=== PATIENT | female | born 1990 | race Caucasian/White ===

== ENCOUNTER 2016-07-20 15:48 | Emergency (ER) | payer SELFPAY ==
[~2016-07-20] VITALS: Ht 195.6 cm; Wt 92.1 kg
[~2016-07-20 15:48] MED LIST: DIPH25CA58 PO; HYDR-971 PO; PENI500T PO; PRED50TA PO; RANI150T6 PO; TRAM-29 PO; TRIA15CR3 TP
--- NOTE | 2016-07-20 16:14 | PHYS DOC ---
Past Medical History Past Medical History: Constipation, GERD Additional Past Medical Histor: Pinched nerve lower back. Past Surgical History: Appendectomy Alcohol Use: None Drug Use: None Adult General Chief Complaint Chief Complaint: ABDOMINAL PAIN HPI HPI Patient is a 26 year old [female] who presents with [recent 1 week hx constipation, small BM yesterday after taking miralax/doculax, c/o mild gradual non radiating periumbilical pain; no nausea/vomiting; no dysuria/frequency, no fever; no chest pain or dyspnea. appetite good. no problems like this before.] Review of Systems Review of Systems Constitutional: Denies fever or chills [] Eyes: Denies change in visual acuity, redness, or eye pain [] HENT: Denies nasal congestion or sore throat [] Respiratory: Denies cough or shortness of breath [] Cardiovascular: No additional information not addressed in HPI [] GI: Denies abdominal pain, nausea, vomiting, bloody stools or diarrhea [] : Denies dysuria or hematuria [] Musculoskeletal: Denies back pain or joint pain [] Integument: Denies rash or skin lesions [] Neurologic: Denies headache, focal weakness or sensory changes [] Endocrine: Denies polyuria or polydipsia all neg except as noted in HPI[] Allergies Allergies Allergies Coded Allergies Type Severity Reaction Last Updated Verified No Known Drug Allergies 02/04/13 No Physical Exam Physical Exam Constitutional: Well developed, well nourished, no acute distress, non-toxic appearance. [] HENT: Normocephalic, atraumatic, bilateral external ears normal, oropharynx moist, no oral exudates, nose normal. [] Eyes: PERRLA, EOMI, conjunctiva normal, no discharge. [] Neck: Normal range of motion, no tenderness, supple, no stridor. [] Cardiovascular:Heart rate regular rhythm, no murmur [] Lungs & Thorax: Bilateral breath sounds clear to auscultation [] Abdomen: Bowel sounds normal, soft, no tenderness, no masses, no pulsatile masses. [] Skin: Warm, dry, no erythema, no rash. [] Back: No tenderness, no CVA tenderness. [] Extremities: No tenderness, no cyanosis, no clubbing, ROM intact, no edema. [] Neurologic: Alert and oriented X 3, normal motor function, normal sensory function, no focal deficits noted. [] Psychologic: Affect normal, judgement normal, mood normal. [] Current Patient Data Vital Signs Vital Signs Date Time Temp Pulse Resp B/P (MAP) Pulse Ox O2 Delivery O2 Flow Rate FiO2 07/20/16 16:01 98.8 103 16 115/74 (88) 99 Room Air 98.8 Lab Values Laboratory Tests Test 07/20/16 15:13 07/20/16 16:00 07/20/16 16:25 POC Urine HCG, Qualitative Hcg negative (Negative) Urine Collection Type Unknown Urine Color Yellow Urine Clarity Cloudy Urine pH 6.0 Urine Specific [place] 1.015 Urine Protein Negative mg/dL (NEG-TRACE) Urine Glucose (UA) Negative mg/dL (NEG) Urine Ketones (Stick) Negative mg/dL (NEG) Urine Blood Large (NEG) Urine Nitrite Negative (NEG) Urine Bilirubin Negative (NEG) Urine Urobilinogen Dipstick 0.2 mg/dL (0.2 mg/dL) Urine Leukocyte Esterase Negative (NEG) Urine RBC >40 /HPF (0-2) Urine WBC 1-4 /HPF (0-4) Urine Squamous Epithelial Cells Mod /LPF Urine Bacteria Few /HPF (0-FEW) Urine Mucus Marked /LPF White Blood Count 7.8 x10^3/uL (4.0-11.0) Red Blood Count 4.76 x10^6/uL (3.50-5.40) Hemoglobin 14.6 g/dL (12.0-15.5) Hematocrit 42.6 % (36.0-47.0) Mean Corpuscular Volume 90 fL (79-100) Mean Corpuscular Hemoglobin 31 pg (25-35) Mean Corpuscular Hemoglobin Concent 34 g/dL (31-37) Red Cell Distribution Width 12.9 % (11.5-14.5) Platelet Count 283 x10^3/uL (140-400) Neutrophils (%) (Auto) 55 % (31-73) Lymphocytes (%) (Auto) 35 % (24-48) Monocytes (%) (Auto) 7 % (0-9) Eosinophils (%) (Auto) 3 % (0-3) Basophils (%) (Auto) 1 % (0-3) Neutrophils # (Auto) 4.3 x10^3uL (1.8-7.7) Lymphocytes # (Auto) 2.7 x10^3/uL (1.0-4.8) Monocytes # (Auto) 0.6 x10^3/uL (0.0-1.1) Eosinophils # (Auto) 0.2 x10^3/uL (0.0-0.7) Basophils # (Auto) 0.0 x10^3/uL (0.0-0.2) Sodium Level 141 mmol/L (136-145) Potassium Level 3.7 mmol/L (3.5-5.1) Chloride Level 104 mmol/L (98-107) Carbon Dioxide Level 26 mmol/L (21-32) Anion Gap 11 (6-14) Blood Urea Nitrogen 7 mg/dL (7-20) Creatinine 0.6 mg/dL (0.6-1.0) Estimated GFR (Cockcroft-Gault) 119.9 BUN/Creatinine Ratio 12 (6-20) Glucose Level 93 mg/dL (70-99) Calcium Level 8.8 mg/dL (8.5-10.1) Total Bilirubin 0.5 mg/dL (0.2-1.0) Aspartate Amino Transferase (AST) 11 U/L (15-37) L Alanine Aminotransferase (ALT) 16 U/L (14-59) Alkaline Phosphatase 70 U/L (46-116) Total Protein 7.6 g/dL (6.4-8.2) Albumin 4.2 g/dL (3.4-5.0) Albumin/Globulin Ratio 1.2 (1.0-1.7) Lipase 94 U/L (73-393) Laboratory Tests 07/20/16 16:25 Laboratory Tests 07/20/16 16:25 EKG EKG [] Radiology/Procedures Radiology/Procedures Acute abd series: full of stool. no obstruction my review. neg per rad report[] Course & Med Decision Making Course & Med Decision Making Pertinent Labs and Imaging studies reviewed. (See chart for details) completely benign abdominal exam. will rec mag citrate as outpatient [] Dragon Disclaimer Dragon Disclaimer This electronic medical record was generated, in whole or in part, using a voice recognition dictation system. Departure Departure Impression: Primary Impression: Constipation Disposition: 01 HOME, SELF-CARE Condition: STABLE Referrals: JOLIE FLEMING MD (PCP) Scripts Magnesium Citrate (MAGNESIUM CITRATE) 296 Ml Solution 296 ML PO ONCE for severe contstipation MDD one bottle, #296 ML Prov: MARYURI RIOS MD 07/20/16 MARYURI RIOS MD July 20, 2016 16:14
[2016-07-20 16:18] LABS: BILIRUBIN,URINE NEGATIVE (NEG); GLUCOSE,URINE NEGATIVE (NEG); NITRITE,URINE NEGATIVE (NEG); PROTEIN,URINE NEGATIVE (NEG-TRACE); UROBILINOGEN,URINE 0.2 mg/dL (0.2 mg/dL)
[2016-07-20 16:22] LABS: BACTERIA,URINE FEW /HPF (0-FEW); RBC,URINE >40 /HPF (0-2); SQUAMOUS EPITHELIAL CELL,UR MOD /LPF
[2016-07-20 16:36] LABS: BASO % 1 % (0-3); EOS % 3 % (0-3); HEMATOCRIT 42.6 % (36.0-47.0); HEMOGLOBIN 14.6 g/dL (12.0-15.5); LYMPH # 2.7 x10^3/uL (1.0-4.8); LYMPH % 35 % (24-48); MEAN CORPUSCULAR HEMOGLOBIN 31 pg (25-35); MEAN CORPUSCULAR HGB CONC 34 g/dL (31-37); MEAN CORPUSCULAR VOLUME 90 fL (79-100); MONO % 7 % (0-9); NEUT % 55 % (31-73); PLATELET COUNT 283 x10^3/uL (140-400); RED BLOOD COUNT 4.76 x10^6/uL (3.50-5.40); RED CELL DISTRIBUTION WIDTH 12.9 % (11.5-14.5); WHITE BLOOD COUNT 7.8 x10^3/uL (4.0-11.0)
[2016-07-20 16:49] LABS: CALCIUM 8.8 mg/dL (8.5-10.1); CREATININE 0.6 mg/dL (0.6-1.0); GFR 119.9; POTASSIUM 3.7 mmol/L (3.5-5.1)
[2016-07-20 16:53] LABS: ALBUMIN 4.2 g/dL (3.4-5.0); ALBUMIN/GLOBULIN RATIO 1.2 (1.0-1.7); TOTAL BILIRUBIN 0.5 mg/dL (0.2-1.0); TOTAL PROTEIN 7.6 g/dL (6.4-8.2)
--- NOTE | 2016-07-20 16:58 | RAD ---
Abdomen series with chest, 3 views, 07/20/2016: History: Constipation, epigastric pain The abdominal gas pattern is unremarkable. No free air is seen in the abdomen. There is no evidence of organomegaly. A surgical clip is present in the right lower quadrant. The heart size is normal. No pulmonary infiltrates are seen. There is no evidence of pleural fluid. IMPRESSION: No acute abdominal abnormality is detected.
[2016-07-20] MEDS ORDERED: MAGN296S PO ×3 (18:49→19:31)
[2016-07-20 19:10] VITALS: BP 111/69
== END 2016-07-20 19:35 | disposition home or self-care (01) ==
LOC: ER 15:48
DX: K59.00 Constipation, unspecified (principal); R10.33 Periumbilical pain; K21.9 Gastro-esophageal reflux disease without esophagitis; Z90.49 Acquired absence of other specified parts of digestive tract
CPT/HCPCS: 36415; 74022; 80053; 81001; 81025; 83690; 84703; 85027; 99285-25

== ENCOUNTER 2017-01-19 03:25 | Emergency (ER) | payer SELFPAY ==
[2017-01-19 03:25] VITALS: BP 124/65
[~2017-01-19 03:25] MED LIST changes: +MAGN296S9 PO; +ONDA4TAB10 SL; -TRAM-29 PO; +TRAM-48 PO
--- NOTE | 2017-01-19 04:07 | PHYS DOC ---
Past Medical History Past Medical History: Constipation, GERD Additional Past Medical Histor: Pinched nerve lower back. Past Surgical History: Appendectomy Additional Information: Non smoker Alcohol Use: None Drug Use: None Adult General Chief Complaint Chief Complaint: Congestion HPI HPI Patient is a 26 year old female who presents with vomiting; little diarrhea and cough. Started at 2100 PM. She is coughing up clear mucus. She "gags" on the mucus and then vomits. Mild stomach ache. No blood in stool or emesis. No fever. No travel. no sick contacts. Review of Systems Review of Systems Constitutional: Denies fever or chills Eyes: Denies change in visual acuity, redness, or eye pain HENT: Denies nasal congestion or sore throat Respiratory: POS cough but NO shortness of breath Cardiovascular: No chest pain GI: POS abdominal cramps, POS nausea, vomiting, NO bloody stools Little diarrhea : Denies dysuria or hematuria Musculoskeletal: Denies back pain or joint pain Integument: Denies rash or skin lesions Neurologic: Denies headache, focal weakness or sensory changes All other systems were reviewed and found to be within normal limits, except as documented in this note. Current Medications Current Medications Current Medications Medications (Trade) Dose Ordered Sig/Gloria Start Time Stop Time Status Last Admin Dose Admin Ondansetron HCl (Zofran Odt) 4 mg 1X ONCE 01/19/17 04:15 01/19/17 04:16 Pantoprazole Sodium (Protonix) 40 mg 1X ONCE 01/19/17 04:15 01/19/17 04:16 Allergies Allergies Allergies Coded Allergies Type Severity Reaction Last Updated Verified No Known Drug Allergies 02/04/13 No Physical Exam Physical Exam Constitutional: Well developed, well nourished, no acute distress, non-toxic appearance. HENT: Normocephalic, atraumatic, bilateral external ears normal, oropharynx moist, no oral exudates, nose normal. Eyes: PERRLA, EOMI, conjunctiva normal, no discharge. Neck: Normal range of motion, no tenderness, supple, no stridor. Cardiovascular:Heart rate regular rhythm, no murmur Lungs & Thorax: Bilateral breath sounds clear to auscultation Abdomen: Bowel sounds normal, soft, minimal tenderness epigastrium; no rebound or guarding. no masses, no pulsatile masses. Skin: Warm, dry, no erythema, no rash. Back: No tenderness, no CVA tenderness. Extremities: No tenderness, no cyanosis, no clubbing, ROM intact, no edema. Neurologic: Alert and oriented X 3, normal motor function, normal sensory function, no focal deficits noted. Psychologic: Affect normal, judgement normal, mood normal. Course & Med Decision Making Course & Med Decision Making Evaluated patient. No evidence of acute surgical abdomen. She may have a separate viral syndrome (GI illness in community) or it may be an increase in her reflux. Zofran ODT here and Protonix po. Rx: Zofran. Abdominal pain precautions given. I have spoken with the patient and/or caregivers. I have explained the patient' s condition, diagnosis and treatment plan based on the information available to me at this time. I have answered the patient's and/or caregiver's questions and addressed any concerns. The patient and/or caregivers have as good an understanding of the patient's diagnosis, condition and treatment plan as can be expected at this point. The patient's condition is stable and appropriate for discharge from the emergency department. The patient will pursue further outpatient evaluation with the primary care physician or other designated or consulting physician as outlined in the discharge instructions. The patient and/or caregivers are agreeable to this plan of care and follow-up instructions have been explained in detail. The patient and/or caregivers have received these instructions in written format and have expressed an understanding of the discharge instructions. The patient and/or caregivers are aware that any significant change in condition or worsening of symptoms should prompt an immediate return to this or the closest emergency department or a call to 911. Dragon Disclaimer Dragon Disclaimer This electronic medical record was generated, in whole or in part, using a voice recognition dictation system. Departure Departure Impression: Primary Impression: Viral syndrome Additional Impressions: Nausea & vomiting Reflux esophagitis Disposition: 01 HOME, SELF-CARE Condition: STABLE Referrals: JOLIE FLEMING MD (PCP) Patient Instructions: Diet for Gastroesophageal Reflux Disease, Child, Easy-to- Read, Nausea and Vomiting Additional Instructions: YOU WERE GIVEN A DOSE OF NAUSEA MEDICATION HERE; YOU WERE GIVEN PROTONIX HERE WELL. Scripts Pantoprazole Sodium (PROTONIX) 40 Mg Tablet.dr 1 TAB PO DAILY, #30 TAB 5 Refills Prov: GET BOYER MD 01/19/17 Ondansetron (ZOFRAN ODT) 4 Mg Tab.rapdis 4 MG PO BID Y for NAUSEA/VOMITING, #10 TAB Prov: GET BOYER MD 01/19/17 Problem Qualifiers Additional Impressions: Nausea & vomiting Vomiting type: unspecified Vomiting Intractability: non-intractable Qualified Codes: R11.2 - Nausea with vomiting, unspecified GET BOYER MD Jan 19, 2017 04:07
[2017-01-19] MEDS ORDERED: PANT40TA3 PO (04:10)
[2017-01-19] MEDS ORDERED: ONDA4TAB10 PO (04:10)
[2017-01-19] MEDS ORDERED: PANTOPRAZOLE 40 MG TABLET.DR. PO ONE (04:15)
[2017-01-19] MEDS ORDERED: ONDANSETRON ODT 4 MG TAB.RAPDIS. PO ONE (04:15)
== END 2017-01-19 04:45 | disposition home or self-care (01) ==
LOC: ER 03:25
DX: K21.0 Gastro-esophageal reflux disease with esophagitis (principal); B34.9 Viral infection, unspecified; R19.7 Diarrhea, unspecified
CPT/HCPCS: 99283; Q0162

== ENCOUNTER 2017-04-13 14:01 | Emergency (ER) | payer SELFPAY | END 2017-04-13 15:39 | disposition home or self-care (01) | LOC: ER 15:39 | DX: L98.8 Other specified disorders of the skin and subcutaneous tissue (principal); K21.9 Gastro-esophageal reflux disease without esophagitis; Z90.49 Acquired absence of other specified parts of digestive tract | CPT/HCPCS: 99281 ==

== ENCOUNTER 2017-08-14 08:14 | Emergency (ER) | payer SELFPAY | END 2017-08-14 09:02 | disposition home or self-care (01) | LOC: ER 08:14 | DX: L25.9 Unspecified contact dermatitis, unspecified cause (principal); K21.9 Gastro-esophageal reflux disease without esophagitis | CPT/HCPCS: 99283 ==

== ENCOUNTER 2017-12-20 15:03 | Emergency (ER) | payer SELFPAY ==
[~2017-12-20] VITALS: Ht 195.6 cm; Wt 89.8 kg
[~2017-12-20 15:03] MED LIST changes: +METH4TAB2 PO; +ONDA4TAB10 PO; +PANT40TA3 PO; +RANI150T21 PO; -RANI150T6 PO
[2017-12-20 15:08] VITALS: BP 112/71
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
== END 2017-12-20 16:05 | disposition home or self-care (01) ==
LOC: ER 15:03
DX: S40.011A Contusion of right shoulder, initial encounter (principal); K21.9 Gastro-esophageal reflux disease without esophagitis; Z90.89 Acquired absence of other organs; X58.XXXA Exposure to other specified factors, initial encounter; Y93.89 Activity, other specified; Y92.89 Other specified places as the place of occurrence of the external cause; Y99.8 Other external cause status
CPT/HCPCS: 99281

== ENCOUNTER 2018-02-11 14:40 | Emergency (ER) | payer SELFPAY ==
[~2018-02-11] VITALS: Ht 195.6 cm; Wt 88.5 kg
[~2018-02-11 14:40] MED LIST changes: +HYDR-3164 PO; -HYDR-971 PO
[2018-02-11] MEDS ORDERED: RANI150T21 PO (15:04)
[2018-02-11] MEDS ORDERED: ONDANSETRON PF 4 MG/2 ML VIAL. IV ONE (15:15)
[2018-02-11] MEDS ORDERED: IV NORMAL SALINE 1000ML BAG 1,000 ML IV ONE (15:15)
--- NOTE | 2018-02-11 15:16 | PHYS DOC ---
Past Medical History Past Medical History: Constipation, GERD, Other Additional Past Medical Histor: Pinched nerve lower back Past Surgical History: Appendectomy Alcohol Use: None Drug Use: None Adult General Chief Complaint Chief Complaint: COUGH HPI HPI 27 y/o female presents to ER for c/o cough, sinus congestion/drainage, N/V, and fever. She reports she had 100.3 temperature at home denies any over-the- counter medications. Patient reports she has had nausea and one episode of vomiting today. She denies any diarrhea. LMP and december. She denies travel or been around others with similar symptoms. Review of Systems Review of Systems Constitutional: Reports fever/chills- temp at home 100.3 Eyes: Denies change in visual acuity, redness, or eye pain [] HENT: Reports sore throat and sinus drainage/congestion- denies ear ache Respiratory: Denies shortness of breath. Reports nonprod. cough Cardiovascular: Denies chest pain or palpitations GI: Denies abdominal pain, bloody stools or diarrhea. Reports intermittent nausea with 1 episode vomiting : Denies dysuria or hematuria [] Musculoskeletal: Denies back/neck pain or joint pain [] Integument: Denies rash or skin lesions [] Neurologic: Denies headache, focal weakness or sensory changes [] All other systems were reviewed and found to be within normal limits, except as documented in this note. Current Medications Current Medications Current Medications Medications (Trade) Dose Ordered Sig/Gloria Start Time Stop Time Status Last Admin Dose Admin Ondansetron HCl (Zofran) 4 mg 1X ONCE 02/11/18 15:15 02/11/18 15:16 DC 02/11/18 15:43 4 MG Sodium Chloride 1,000 ml @ 1,000 mls/hr 1X ONCE 02/11/18 15:15 02/11/18 16:14 DC 02/11/18 15:33 1,000 MLS/HR Allergies Allergies Allergies Coded Allergies Type Severity Reaction Last Updated Verified No Known Drug Allergies 02/04/13 No Physical Exam Physical Exam Constitutional: Well developed, well nourished, no acute distress, non-toxic appearance. [] HENT: Normocephalic, atraumatic, bilateral external ears normal, oropharynx moist, no oral exudates, nose normal. [] Eyes: PERRLA, EOMI, conjunctiva normal, no discharge. [] Neck: Normal range of motion, no tenderness, supple, no stridor. [] Cardiovascular:Heart rate regular rhythm, no murmur [] Lungs & Thorax: Bilateral breath sounds clear to auscultation [] Abdomen: Bowel sounds normal, soft, no tenderness, no masses, no pulsatile masses. [] Skin: Warm, dry, no erythema, no rash. [] Back: No tenderness, no CVA tenderness. [] Extremities: No tenderness, no cyanosis, no clubbing, ROM intact, no edema. [] Neurologic: Alert and oriented X 3, normal motor function, normal sensory function, no focal deficits noted. [] Psychologic: Affect normal, judgement normal, mood normal. [] Current Patient Data Vital Signs Vital Signs Date Time Temp Pulse Resp B/P (MAP) Pulse Ox O2 Delivery O2 Flow Rate FiO2 02/11/18 14:50 97.9 116 20 106/68 (81) 97 Room Air 97.9 Lab Values Laboratory Tests Test 02/11/18 15:09 02/11/18 15:16 02/11/18 15:19 02/11/18 15:30 Urine Collection Type Unknown Urine Color Yellow Urine Clarity Cloudy Urine pH 5.5 Urine Specific [place] >=1.030 Urine Protein 30 mg/dL (NEG-TRACE) Urine Glucose (UA) Negative mg/dL (NEG) Urine Ketones (Stick) Negative mg/dL (NEG) Urine Blood Large (NEG) Urine Nitrite Negative (NEG) Urine Bilirubin Small (NEG) Urine Urobilinogen Dipstick 1.0 mg/dL (0.2 mg/dL) Urine Leukocyte Esterase Small (NEG) Urine RBC 1-2 /HPF (0-2) Urine WBC 5-10 /HPF (0-4) Urine Squamous Epithelial Cells Many /LPF Urine Bacteria Many /HPF (0-FEW) Urine Mucus Marked /LPF White Blood Count 6.5 x10^3/uL (4.0-11.0) Red Blood Count 4.65 x10^6/uL (3.50-5.40) Hemoglobin 14.6 g/dL (12.0-15.5) Hematocrit 41.5 % (36.0-47.0) Mean Corpuscular Volume 89 fL (79-100) Mean Corpuscular Hemoglobin 31 pg (25-35) Mean Corpuscular Hemoglobin Concent 35 g/dL (31-37) Red Cell Distribution Width 12.6 % (11.5-14.5) Platelet Count 216 x10^3/uL (140-400) Neutrophils (%) (Auto) 64 % (31-73) Lymphocytes (%) (Auto) 16 % (24-48) L Monocytes (%) (Auto) 19 % (0-9) H Eosinophils (%) (Auto) 1 % (0-3) Basophils (%) (Auto) 1 % (0-3) Neutrophils # (Auto) 4.2 x10^3uL (1.8-7.7) Lymphocytes # (Auto) 1.0 x10^3/uL (1.0-4.8) Monocytes # (Auto) 1.2 x10^3/uL (0.0-1.1) H Eosinophils # (Auto) 0.1 x10^3/uL (0.0-0.7) Basophils # (Auto) 0.0 x10^3/uL (0.0-0.2) Platelet Estimate Pending Sodium Level 138 mmol/L (136-145) Potassium Level 3.1 mmol/L (3.5-5.1) L Chloride Level 102 mmol/L (98-107) Carbon Dioxide Level 26 mmol/L (21-32) Anion Gap 10 (6-14) Blood Urea Nitrogen 12 mg/dL (7-20) Creatinine 0.8 mg/dL (0.6-1.0) Estimated GFR (Cockcroft-Gault) 85.4 BUN/Creatinine Ratio 15 (6-20) Glucose Level 105 mg/dL (70-99) H Calcium Level 9.1 mg/dL (8.5-10.1) Total Bilirubin 0.5 mg/dL (0.2-1.0) Aspartate Amino Transferase (AST) 14 U/L (15-37) L Alanine Aminotransferase (ALT) 18 U/L (14-59) Alkaline Phosphatase 74 U/L (46-116) Troponin I Quantitative < 0.017 ng/mL (0.000-0.055) Total Protein 8.0 g/dL (6.4-8.2) Albumin 4.2 g/dL (3.4-5.0) Albumin/Globulin Ratio 1.1 (1.0-1.7) POC Urine HCG, Qualitative Hcg negative (Negative) Lactic Acid Level 1.0 mmol/L (0.4-2.0) Laboratory Tests 02/11/18 15:16 Laboratory Tests 02/11/18 15:16 EKG EKG [] Radiology/Procedures Radiology/Procedures PROCEDURE: CHEST PA & LATERAL Chest PA and lateral 02/11/2018. Reason for exam: Cough and fever with shortness of breath for 4 days. Comparison is made with a study of 07/20/2016. No infiltrate or effusion is seen. Heart size and pulmonary vascularity appear normal. IMPRESSION: No acute disease. Electronically signed by: Aki Figueredo Jr., MD (02/11/2018 4:01 PM) [facility] DICTATED and SIGNED BY: AKI FIGUEREDO Jr, MD DATE: 02/11/18 1553 Course & Med Decision Making Course & Med Decision Making Pertinent Labs and Imaging studies reviewed. (See chart for details) HR during triage and initial exam 110-120's with temp. 98.1. Pt has bilat. tonsillar swelling with erythema- she refused strep test. 1615: IV fluids continued to infuse. Patient's heart rate per RN had improved to 90 following approximately 800 mL normal saline. Discussed chest x-ray with no acute findings. EKG with no acute ST elevation or STEMI and troponin was < 0.017. Patient reports she is feeling better following IV fluids and Zofran. 1700: On reevaluation patient reports she is feeling much better. She has had water to drink and has had no vomiting episodes and denies nausea. Heart rate is 91 and patient is in no visible distress at this time. Patient comfortable with home discharge. On reexam bilateral lung sounds are clear. Patient does continue to have sinus congestion discussed [id number] Afrin as directed on container with education on not using for more than 3 days. Education provided on uvbu-[id number] medications such as Mucinex, Tylenol, and/or ibuprofen as directed on container for symptoms. Patient encouraged to increase fluid intake. Will provide Zofran ODT prescription with discharge paperwork. Discharge instructions were discussed and education provided on signs and symptoms to return to ER for. Dragon Disclaimer Dragon Disclaimer This electronic medical record was generated, in whole or in part, using a voice recognition dictation system. Departure Departure Impression: Primary Impression: Viral syndrome Additional Impressions: Cough Dehydration Nausea & vomiting Disposition: 01 HOME, SELF-CARE Condition: STABLE Referrals: NO PCP (PCP) Patient Instructions: Cough, Adult, Dehydration, Adult, Nausea and Vomiting, Viral Syndrome Additional Instructions: Tylenol and/or ibuprofen as directed on container for fever and pain control as needed. You can use [id number] Afrin and/or Mucinex as directed on container for sinus congestion and cough. Increase water intake daily. If symptoms persist follow-up with primary care physician in 3-5 days for reevaluation or sooner with concerns. Scripts Ondansetron (ONDANSETRON ODT) 4 Mg Tab.rapdis 1 TAB PO PRN Q6-8HRS PRN for NAUSEA, #8 TAB 0 Refills Prov: JAMAAL SHULTZ APRN 02/11/18 Problem Qualifiers JAMAAL SHULTZ APRN Feb 11, 2018 15:16
[2018-02-11 15:25] LABS: BILIRUBIN,URINE SMALL (NEG); CLARITY,URINE CLOUDY; COLOR,URINE YELLOW; NITRITE,URINE NEGATIVE (NEG); PH,URINE 5.5; PROTEIN,URINE 30 mg/dL (NEG-TRACE)
[2018-02-11 15:32] LABS: BASO % 1 % (0-3); EOS # 0.1 x10^3/uL (0.0-0.7); EOS % 1 % (0-3); HEMATOCRIT 41.5 % (36.0-47.0); HEMOGLOBIN 14.6 g/dL (12.0-15.5); LYMPH % 16 % (24-48); MEAN CORPUSCULAR HEMOGLOBIN 31 pg (25-35); MEAN CORPUSCULAR HGB CONC 35 g/dL (31-37); MEAN CORPUSCULAR VOLUME 89 fL (79-100); MONO # 1.2 x10^3/uL (0.0-1.1); MONO % 19 % (0-9); NEUT # 4.2 x10^3uL (1.8-7.7); NEUT % 64 % (31-73); PLATELET COUNT 216 x10^3/uL (140-400); RED BLOOD COUNT 4.65 x10^6/uL (3.50-5.40); RED CELL DISTRIBUTION WIDTH 12.6 % (11.5-14.5); WHITE BLOOD COUNT 6.5 x10^3/uL (4.0-11.0)
--- NOTE | 2018-02-11 15:33 | EKG ---
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
[2018-02-11 15:35] LABS: BACTERIA,URINE MANY /HPF (0-FEW); SQUAMOUS EPITHELIAL CELL,UR MANY /LPF
[2018-02-11 15:43] LABS: CALCIUM 9.1 mg/dL (8.5-10.1); CREATININE 0.8 mg/dL (0.6-1.0); GFR 85.4; POTASSIUM 3.1 mmol/L (3.5-5.1)
[2018-02-11 15:51] LABS: ALBUMIN 4.2 g/dL (3.4-5.0); ALBUMIN/GLOBULIN RATIO 1.1 (1.0-1.7); TOTAL BILIRUBIN 0.5 mg/dL (0.2-1.0)
--- NOTE | 2018-02-11 16:04 | RAD ---
Chest PA and lateral 02/11/2018. Reason for exam: Cough and fever with shortness of breath for 4 days. Comparison is made with a study of 07/20/2016. No infiltrate or effusion is seen. Heart size and pulmonary vascularity appear normal. IMPRESSION: No acute disease. Electronically signed by: Aki Abdi Jr., MD (02/11/2018 4:01 PM) [id number]
[2018-02-11] MEDS ORDERED: ONDA4TAB12 PO (17:14)
[2018-02-11 17:16] VITALS: BP 107/73
[2018-02-11 18:25] LABS: % EOS 2 % (0-5); % LYMPHS 17 % (24-48); % MONOS 17 % (0-10); % SEGS 64 % (35-66); PLT ESTIMATE ADEQUATE (ADEQUATE)
== END 2018-02-11 17:26 | disposition home or self-care (01) ==
LOC: ER 14:40
DX: B34.9 Viral infection, unspecified (principal); E86.0 Dehydration; R11.2 Nausea with vomiting, unspecified; K21.9 Gastro-esophageal reflux disease without esophagitis; Z90.89 Acquired absence of other organs
CPT/HCPCS: 36415; 71046; 80053; 81001; 81025; 83605; 84484; 85007; 85025; 93005; 96361; 96374; 99284; J2405; J7030

== ENCOUNTER 2018-03-03 09:03 | Emergency (ER) | payer SELFPAY ==
[~2018-03-03] VITALS: Ht 195.6 cm; Wt 88.5 kg
[~2018-03-03 09:03] MED LIST changes: +ONDA4TAB12 PO
[2018-03-03 09:12] VITALS: BP 113/67
[2018-03-03] MEDS ORDERED: HYDROcodone/APAP 5/325MG 1 TAB TABLET PO ONE (09:30)
[2018-03-03 09:37] LABS: BILIRUBIN,URINE SMALL (NEG); CLARITY,URINE CLOUDY; COLOR,URINE YELLOW; NITRITE,URINE NEGATIVE (NEG); PROTEIN,URINE NEGATIVE (NEG-TRACE)
--- NOTE | 2018-03-03 09:41 | PHYS DOC ---
Past Medical History Past Medical History: Constipation, GERD, Other Additional Past Medical Histor: Pinched nerve lower back Past Surgical History: Appendectomy Alcohol Use: None Drug Use: None Adult General Chief Complaint Chief Complaint: BACK PAIN - NO INJURY [facility] Patient is a 27 year old female who presents with back pain x 2 days. The patient has a history of a pinched nerve and states that this feels similar. She denies injury. She denies urgency, frequency or burning with urination. She denies possibility of . Review of Systems Review of Systems Constitutional: Denies fever or chills [] Respiratory: Denies cough or shortness of breath [] Cardiovascular: No additional information not addressed in HPI [] GI: Denies abdominal pain, nausea, vomiting, bloody stools or diarrhea [] : Denies dysuria or hematuria [] Musculoskeletal: See history of present illness Integument: Denies rash or skin lesions [] Neurologic: Denies headache, focal weakness or sensory changes [] Endocrine: Denies polyuria or polydipsia [] All other systems were reviewed and found to be within normal limits, except as documented in this note. Current Medications Current Medications Current Medications Medications (Trade) Dose Ordered Sig/Gloria Start Time Stop Time Status Last Admin Dose Admin Acetaminophen/ Hydrocodone Bitart (Lortab 5/325) 1 tab 1X ONCE 03/03/18 09:30 03/03/18 09:31 DC 03/03/18 09:48 1 TAB Allergies Allergies Allergies Coded Allergies Type Severity Reaction Last Updated Verified No Known Drug Allergies 02/04/13 No Physical Exam Physical Exam Constitutional: Well developed, well nourished, no acute distress, non-toxic appearance. [] Cardiovascular:Heart rate regular rhythm, no murmur [] Lungs & Thorax: Bilateral breath sounds clear to auscultation [] Abdomen: Bowel sounds normal, soft, no tenderness, no masses, no pulsatile masses. [] Skin: Warm, dry, no erythema, no rash. [] Back: lumbar tenderness with no gross deformity or step-offs noted the patient states that the pain is radiating to her buttock, no CVA tenderness. [] Extremities: No tenderness, no cyanosis, no clubbing, ROM intact, no edema. [] Neurologic: Alert and oriented X 3, normal motor function, normal sensory function, no focal deficits noted. [] Psychologic: Affect normal, judgement normal, mood normal. [] Current Patient Data Vital Signs Vital Signs Date Time Temp Pulse Resp B/P (MAP) Pulse Ox O2 Delivery O2 Flow Rate FiO2 03/03/18 09:48 16 99 Room Air 03/03/18 09:12 98.0 84 113/67 (82) 98.0 Lab Values Laboratory Tests Test 03/03/18 09:12 03/03/18 09:25 Urine Collection Type Unknown Urine Color Yellow Urine Clarity Cloudy Urine pH 6.0 Urine Specific [place] 1.025 Urine Protein Negative mg/dL (NEG-TRACE) Urine Glucose (UA) Negative mg/dL (NEG) Urine Ketones (Stick) 15 mg/dL (NEG) Urine Blood Small (NEG) Urine Nitrite Negative (NEG) Urine Bilirubin Small (NEG) Urine Urobilinogen Dipstick 1.0 mg/dL (0.2 mg/dL) Urine Leukocyte Esterase Trace (NEG) Urine RBC 3-5 /HPF (0-2) Urine WBC 1-4 /HPF (0-4) Urine Squamous Epithelial Cells Many /LPF Urine Bacteria Moderate /HPF (0-FEW) Urine Mucus Marked /LPF POC Urine HCG, Qualitative Hcg negative (Negative) EKG EKG [] Radiology/Procedures Radiology/Procedures [] Course & Med Decision Making Course & Med Decision Making Pertinent Labs and Imaging studies reviewed. (See chart for details) [] Dragon Disclaimer Dragon Disclaimer This electronic medical record was generated, in whole or in part, using a voice recognition dictation system. Departure Departure Impression: Primary Impression: Urinary tract infection Disposition: HOME, SELF-CARE Condition: STABLE Referrals: NO PCP (PCP) Patient Instructions: Urinary Tract Infection Additional Instructions: Increase fluids and rest. Take the antibiotic as directed. Follow-up with your primary care provider for urine recheck in one week. Worsening return to the emergency department. Scripts Nitrofurantoin Monohyd/M-Cryst (MACROBID 100 MG CAPSULE) 100 Mg Capsule 1 CAP PO BID for UTI, #14 CAP Prov: VÍCTOR TAO INTERIOR HORTICULTURIST 03/03/18 VÍCTOR TAO INTERIOR HORTICULTURIST Mar 03, 2018 09:41
[2018-03-03 09:47] LABS: BACTERIA,URINE MODERATE /HPF (0-FEW); SQUAMOUS EPITHELIAL CELL,UR MANY /LPF
[2018-03-03] MEDS ORDERED: NITR100C62 PO (10:23)
== END 2018-03-03 10:25 | disposition home or self-care (01) ==
LOC: ER 09:03
DX: N39.0 Urinary tract infection, site not specified (principal); M54.5 Low back pain; K21.9 Gastro-esophageal reflux disease without esophagitis; Z90.89 Acquired absence of other organs
CPT/HCPCS: 81001; 81025; 87086; 99283

== ENCOUNTER 2018-03-06 11:33 | Emergency (ER) | payer SELFPAY ==
[~2018-03-06] VITALS: Ht 195.6 cm; Wt 88.5 kg
[~2018-03-06 11:33] MED LIST changes: +NITR100C62 PO; -PANT40TA3 PO; +PANT40TA77 PO; +RANI-376 PO; -RANI150T21 PO
[2018-03-06 12:20] VITALS: BP 101/62
[2018-03-06 13:31] LABS: BACTERIA,URINE FEW /HPF (0-FEW); BILIRUBIN,URINE NEGATIVE (NEG); CLARITY,URINE CLOUDY; COLOR,URINE STRAW; NITRITE,URINE NEGATIVE (NEG); PH,URINE 5.5; PROTEIN,URINE NEGATIVE (NEG-TRACE); SQUAMOUS EPITHELIAL CELL,UR FEW /LPF; UROBILINOGEN,URINE 0.2 mg/dL (0.2 mg/dL)
[2018-03-06] MEDS ORDERED: PHENAZOPYRIDINE 200 MG TABLET. PO ONE (13:45)
[2018-03-06] MEDS ORDERED: PHEN100T82 PO (14:09)
--- NOTE | 2018-03-06 14:09 | PHYS DOC ---
Past Medical History Past Medical History: Constipation, GERD, Other Additional Past Medical Histor: Pinched nerve lower back Past Surgical History: Appendectomy Alcohol Use: None Drug Use: None Adult General Chief Complaint Chief Complaint: PAIN ON URINATION HPI HPI Patient is a 27 year old female who presents to the ER with continued complaints of dysuria after being diagnosed with a UTI and starting antibiotics on 03/03/18. Pt denies any abdominal pain, nausea, vomiting, diarrhea, irregular vaginal discharge, vaginal odor, or vaginal bleeding. She denies any fever. States that her right low back has hurt and she continues to have burning pain after urinating and has developed suprapubic pain after urination. Review of Systems Review of Systems Constitutional: Denies fever or chills [] HENT: Denies nasal congestion or sore throat [] Respiratory: Denies cough or shortness of breath [] Cardiovascular: No additional information not addressed in HPI [] GI: Denies abdominal pain, nausea, vomiting, bloody stools or diarrhea [] : See HPI Musculoskeletal: See HPI Integument: Denies rash or skin lesions [] Neurologic: Denies headache, focal weakness or sensory changes [] Complete systems were reviewed and found to be within normal limits, except as documented in this note. Current Medications Current Medications Current Medications Medications (Trade) Dose Ordered Sig/Gloria Start Time Stop Time Status Last Admin Dose Admin Phenazopyridine HCl (Pyridium) 200 mg 1X ONCE 03/06/18 13:45 03/06/18 13:46 DC 03/06/18 13:59 200 MG Allergies Allergies Allergies Coded Allergies Type Severity Reaction Last Updated Verified No Known Drug Allergies 02/04/13 No Physical Exam Physical Exam Constitutional: Well developed, well nourished, no acute distress, non-toxic appearance. [] HENT: Normocephalic, atraumatic, bilateral external ears normal, oropharynx moist, no oral exudates, nose normal. [] Eyes: conjunctiva normal, no discharge. [] Cardiovascular:Heart rate regular rhythm, no murmur [] Lungs & Thorax: Bilateral breath sounds clear to auscultation [] Abdomen: soft, no tenderness, no masses, no pulsatile masses. [] Skin: Warm, dry, no erythema, no rash. [] Back: No CVA tenderness. [] Neurologic: Alert and oriented X 3, normal motor function, normal sensory function, no focal deficits noted. [] Psychologic: Affect normal, judgement normal, mood normal. [] Current Patient Data Vital Signs Vital Signs Date Time Temp Pulse Resp B/P (MAP) Pulse Ox O2 Delivery O2 Flow Rate FiO2 03/06/18 12:20 97.8 94 18 101/62 (75) 100 Room Air 97.8 Lab Values Laboratory Tests Test 03/06/18 12:30 Urine Collection Type Unknown Urine Color Straw Urine Clarity Cloudy Urine pH 5.5 Urine Specific [place] 1.010 Urine Protein Negative mg/dL (NEG-TRACE) Urine Glucose (UA) Negative mg/dL (NEG) Urine Ketones (Stick) >=80 mg/dL (NEG) Urine Blood Small (NEG) Urine Nitrite Negative (NEG) Urine Bilirubin Negative (NEG) Urine Urobilinogen Dipstick 0.2 mg/dL (0.2 mg/dL) Urine Leukocyte Esterase Trace (NEG) Urine RBC 1-2 /HPF (0-2) Urine WBC 1-4 /HPF (0-4) Urine Squamous Epithelial Cells Few /LPF Urine Bacteria Few /HPF (0-FEW) EKG EKG [] Radiology/Procedures Radiology/Procedures [] Course & Med Decision Making Course & Med Decision Making Pertinent Labs and Imaging studies reviewed. (See chart for details) Pt was given a dose of pyridium in the ER. Advised pt that Urine results show improvement today. Continue taking meds as prescribed, avoid bladder irritants. Follow up with PCP if sx persist, return to ER if sx worsen. Patient verbalized an understanding of home care, medications, follow-up, and return to ED instructions and was in agreement with the plan of care. [] Dragon Disclaimer Dragon Disclaimer This electronic medical record was generated, in whole or in part, using a voice recognition dictation system. Departure Departure Impression: Primary Impression: Dysuria Disposition: 01 HOME, SELF-CARE Condition: STABLE Referrals: NO PCP (PCP) Patient Instructions: Dysuria Additional Instructions: Fill prescription(s) and use as directed. Continue taking the antibiotic as prescribed. Avoid bladder irritants such as caffeine, carbonation, and spicy foods. Increase clear fluids. Follow up with your primary care doctor if symptoms persist, return to the ER if symptoms worsen. Scripts Phenazopyridine Hcl (PYRIDIUM) 100 Mg Tablet 100 MG PO TID for 3 Days, #9 TAB 0 Refills Prov: DEANDRE SHEARER APRN 03/06/18 DEANDRE SHEARER APRN Mar 06, 2018 14:09
== END 2018-03-06 14:10 | disposition home or self-care (01) ==
LOC: ER 11:33
DX: R30.0 Dysuria (principal); K21.9 Gastro-esophageal reflux disease without esophagitis; Z90.89 Acquired absence of other organs
CPT/HCPCS: 81001; 87086; 99283

== ENCOUNTER 2018-07-03 14:06 | Emergency (ER) | payer SELFPAY ==
[~2018-07-03] VITALS: Ht 195.6 cm; Wt 89.9 kg
[~2018-07-03 14:06] MED LIST changes: +PANT40TA3 PO; -PANT40TA77 PO; +PHEN100T82 PO
[2018-07-03 14:30] VITALS: BP 110/66
--- NOTE | 2018-07-03 14:49 | PHYS DOC ---
Past Medical History Past Medical History: Constipation, GERD, Other Additional Past Medical Histor: Pinched nerve lower back Past Surgical History: Appendectomy Alcohol Use: None Drug Use: None Adult General Chief Complaint Chief Complaint: EARACHE/EAR PAIN HPI HPI Patient is a 27 year old female presents with a 5 out of 10 left ear pain that has been going on for week. Patient denies any fever. Denies any coughing or congestion but states she feels her left ear is muffled. She states she's been taking allergy medications with slight relief. Review of Systems Review of Systems Constitutional: Denies fever or chills [] Eyes: Denies change in visual acuity, redness, or eye pain [] HENT: Reports left ear pain. Denies nasal congestion or sore throat [] Respiratory: Denies cough or shortness of breath [] Cardiovascular: No additional information not addressed in HPI [] GI: Denies abdominal pain, nausea, vomiting, bloody stools or diarrhea [] : Denies dysuria or hematuria [] Musculoskeletal: Denies back pain or joint pain [] Integument: Denies rash or skin lesions [] Neurologic: Denies headache, focal weakness or sensory changes [] All other systems were reviewed and found to be within normal limits, except as documented in this note. Allergies Allergies Allergies Coded Allergies Type Severity Reaction Last Updated Verified No Known Drug Allergies 02/04/13 No Physical Exam Physical Exam Constitutional: Well developed, well nourished, no acute distress, non-toxic appearance. [] HENT: Normocephalic, atraumatic, bilateral external ears normal, oropharynx moist, no oral exudates, nose normal. [] Left TM is injected, cloudy fluid noted to bilateral TM. Eyes: PERRLA, EOMI, conjunctiva normal, no discharge. [] Neck: Normal range of motion, no tenderness, supple, no stridor. [] Cardiovascular:Heart rate regular rhythm, no murmur [] Lungs & Thorax: Bilateral breath sounds clear to auscultation [] Abdomen: Bowel sounds normal, soft, no tenderness, no masses, no pulsatile masses. [] Skin: Warm, dry, no erythema, no rash. [] Back: No tenderness, no CVA tenderness. [] Extremities: No tenderness, no cyanosis, no clubbing, ROM intact, no edema. [] Neurologic: Alert and oriented X 3, normal motor function, normal sensory function, no focal deficits noted. [] Psychologic: Affect normal, judgement normal, mood normal. [] Current Patient Data Vital Signs Vital Signs Date Time Temp Pulse Resp B/P (MAP) Pulse Ox O2 Delivery O2 Flow Rate FiO2 07/03/18 14:30 98.6 101 16 110/66 (81) 96 Room Air 98.6 EKG EKG [] Radiology/Procedures Radiology/Procedures [] Course & Med Decision Making Course & Med Decision Making Pertinent Labs and Imaging studies reviewed. (See chart for details) Patient has left otitis media discharge on amoxicillin. OTC decongestants recommended. Follow-up with PCP in 1-2 weeks. Dragon Disclaimer [employer] Disclaimer This electronic medical record was generated, in whole or in part, using a voice recognition dictation system. Departure Departure Impression: Primary Impression: Otitis media Disposition: HOME, SELF-CARE Condition: STABLE Referrals: NO PCP (PCP) Follow-up with your doctor in one week Patient Instructions: Otitis Media, Adult, [id number] Additional Instructions: You were seen for an ear infection, complete your antibiotics, take over the counter decongestant as needed. Follow up with your doctor in 1 week. Scripts Amoxicillin (AMOXICILLIN) 500 Mg Tablet 1 TAB PO BID, #20 TAB Prov: KEVIN DUVAL APRN 07/03/18 Problem Qualifiers Primary Impression: Otitis media Otitis media type: other nonsuppurative Chronicity: acute Laterality: left Recurrence: non-recurrent Qualified Codes: H65.192 - Other acute nonsuppurative otitis media, left ear KEVIN DUVAL APRN July 03, 2018 14:49
[2018-07-03] MEDS ORDERED: AMOX500T PO (14:54)
== END 2018-07-03 15:11 | disposition home or self-care (01) ==
LOC: ER 14:06
DX: H65.192 Other acute nonsuppurative otitis media, left ear (principal); K21.9 Gastro-esophageal reflux disease without esophagitis; Z90.89 Acquired absence of other organs
CPT/HCPCS: 99283

== ENCOUNTER 2018-08-02 13:11 | Emergency (ER) | payer SELFPAY ==
[~2018-08-02] VITALS: Ht 195.6 cm; Wt 89.2 kg
[~2018-08-02 13:11] MED LIST changes: +AMOX500T PO
[2018-08-02 13:35] VITALS: BP 113/72
[2018-08-02] MEDS ORDERED: DICL50TA4 PO (13:48)
--- NOTE | 2018-08-02 13:48 | PHYS DOC ---
Past Medical History Past Medical History: Constipation, GERD, Other Additional Past Medical Histor: Pinched nerve lower back Past Surgical History: Appendectomy Alcohol Use: None Drug Use: None Adult General Chief Complaint Chief Complaint: EARACHE/EAR PAIN HPI HPI Patient is a 28 year old female who presents to the ED today complaining over sharp 6 out of 10 left ear pain since yesterday. Patient denies any alleviating or exacerbating factors. Denies any fever coughing or congestion. She states she was seen in the ED in July 13, 2018 was diagnosed with ear infection and treated. She states she completed antibiotics. Review of Systems Review of Systems Constitutional: Denies fever or chills [] Eyes: Denies change in visual acuity, redness, or eye pain [] HENT: Reports left ear pain. Denies nasal congestion or sore throat [] Respiratory: Denies cough or shortness of breath [] Cardiovascular: No additional information not addressed in HPI [] GI: Denies abdominal pain, nausea, vomiting, bloody stools or diarrhea [] : Denies dysuria or hematuria [] Musculoskeletal: Denies back pain or joint pain [] Integument: Denies rash or skin lesions [] Neurologic: Denies headache, focal weakness or sensory changes [] All other systems were reviewed and found to be within normal limits, except as documented in this note. Allergies Allergies Allergies Coded Allergies Type Severity Reaction Last Updated Verified No Known Drug Allergies 02/04/13 No Physical Exam Physical Exam Constitutional: Well developed, well nourished, no acute distress, non-toxic appearance. [] HENT: Normocephalic, atraumatic, bilateral external ears normal, oropharynx moist, no oral exudates, nose normal. Bilateral TM are normal. Eyes: PERRLA, EOMI, conjunctiva normal, no discharge. [] Neck: Normal range of motion, no tenderness, supple, no stridor. [] Cardiovascular:Heart rate regular rhythm, no murmur [] Lungs & Thorax: Bilateral breath sounds clear to auscultation [] Abdomen: Bowel sounds normal, soft, no tenderness, no masses, no pulsatile masses. [] Skin: Warm, dry, no erythema, no rash. [] Back: No tenderness, no CVA tenderness. [] Extremities: No tenderness, no cyanosis, no clubbing, ROM intact, no edema. [] Neurologic: Alert and oriented X 3, normal motor function, normal sensory function, no focal deficits noted. [] Psychologic: Affect normal, judgement normal, mood normal. [] EKG EKG [] Radiology/Procedures Radiology/Procedures [] Course & Med Decision Making Course & Med Decision Making Pertinent Labs and Imaging studies reviewed. (See chart for details) This is a 28-year-old female patient presenting to the ED today with left ear pain since yesterday. Physical exam is benign. Off not she was seen in the ED around July 03, 2018 was diagnosed with otitis media sent home on amoxicillin w hich she completed. Patient was provided ENT for follow-up. Discharged with diclofenac. Dragon Disclaimer Dragon Disclaimer This electronic medical record was generated, in whole or in part, using a voice recognition dictation system. Departure Departure Impression: Primary Impression: Otalgia Disposition: 01 HOME, SELF-CARE Condition: STABLE Referrals: NO PCP (PCP) follow up in 1 week RADHA FLEMING MD Patient Instructions: Otalgia-Brief Additional Instructions: You were evaluated in the emergency room for ear pain. Please contact the prov ided ENT and follow-up. Take the prescribed pain medicine as needed for pain. Scripts Diclofenac Sodium (DICLOFENAC SODIUM) 50 Mg Tablet.dr 1 TAB PO BID, #20 TAB 0 Refills Prov: KEVIN DUVAL APRN 08/02/18 Problem Qualifiers Primary Impression: Otalgia Laterality: left Qualified Codes: H92.02 - Otalgia, left ear KEVIN DUVAL APRN Aug 02, 2018 13:48
== END 2018-08-02 13:52 | disposition home or self-care (01) ==
LOC: ER 13:11
DX: H92.02 Otalgia, left ear (principal); K21.9 Gastro-esophageal reflux disease without esophagitis; Z90.89 Acquired absence of other organs
CPT/HCPCS: 99283

== ENCOUNTER 2018-09-22 09:52 | Emergency (ER) | payer SELFPAY ==
[~2018-09-22] VITALS: Ht 195.6 cm; Wt 88.9 kg
[~2018-09-22 09:52] MED LIST changes: +DICL50TA4 PO; -PANT40TA3 PO; +PANT40TA77 PO
[2018-09-22 10:00] VITALS: BP 117/74
--- NOTE | 2018-09-22 10:34 | PHYS DOC ---
Past Medical History Past Medical History: Constipation, GERD, Other Additional Past Medical Histor: Pinched nerve lower back Past Surgical History: Appendectomy Alcohol Use: None Drug Use: None Adult General Chief Complaint Chief Complaint: EARACHE/EAR PAIN [facility] HPI Patient is a 28 year old he will presents with ear pain has been ongoing since July 03. The patient states she was diagnosed with ear infection at that time here in this ER started on a course of amoxicillin. The patient states that her ears been hurting since that time she was seen here a second time in July and states that she was told that she did not have any ear infection. Was giving a referral to ENT at that time patient did not go to ENT. Patient rates her pain as 10 out of 10 in severity, and sharp. Denies taking any medicine at home for the pain. Review of Systems Review of Systems Constitutional: Denies fever or chills [] Eyes: Denies change in visual acuity, redness, or eye pain [] HENT: Denies nasal congestion or sore throat. Reports L ear pain. Respiratory: Denies cough or shortness of breath [] Cardiovascular: No additional information not addressed in HPI [] GI: Denies abdominal pain, nausea, vomiting, bloody stools or diarrhea [] : Denies dysuria or hematuria [] Musculoskeletal: Denies back pain or joint pain [] Integument: Denies rash or skin lesions [] Neurologic: Denies headache, focal weakness or sensory changes [] Endocrine: Denies polyuria or polydipsia [] Complete systems were reviewed and found to be within normal limits, except as documented in this note. Allergies Allergies Allergies Coded Allergies Type Severity Reaction Last Updated Verified No Known Drug Allergies 02/04/13 No Physical Exam Physical Exam Constitutional: Well developed, well nourished, no acute distress, non-toxic appearance. [] HENT: Normocephalic, atraumatic, bilateral external ears normal, bilateral tympanic membranes are pearly morris, oropharynx moist, no oral exudates, nose normal, clicking in left tmj. Eyes: PERRLA, EOMI, conjunctiva normal, no discharge. [] Neck: Normal range of motion, no tenderness, supple, no stridor. [] Cardiovascular:Heart rate regular rhythm, no murmur [] Lungs & Thorax: Bilateral breath sounds clear to auscultation [] Abdomen: Bowel sounds normal, soft, no tenderness, no masses, no pulsatile masses. [] Skin: Warm, dry, no erythema, no rash. [] Back: No tenderness, no CVA tenderness. [] Extremities: No tenderness, no cyanosis, no clubbing, ROM intact, no edema. [] Neurologic: Alert and oriented X 3, normal motor function, normal sensory function, no focal deficits noted. [] Psychologic: Affect normal, judgement normal, mood normal. [] Current Patient Data Vital Signs Vital Signs Date Time Temp Pulse Resp B/P (MAP) Pulse Ox O2 Delivery O2 Flow Rate FiO2 09/22/18 10:00 98.7 97 16 117/74 (88) 98 Room Air 98.7 EKG EKG [] Radiology/Procedures Radiology/Procedures [] Course & Med Decision Making Course & Med Decision Making Pertinent Labs and Imaging studies reviewed. (See chart for details) Ear exam is benign. Discussed with patient the importance of followup. Also discussed pain is likely due to TMJ and suggested she see a dentist. Dragon Disclaimer Dragon Disclaimer This electronic medical record was generated, in whole or in part, using a voice recognition dictation system. Departure Departure Impression: Primary Impression: TMJ (temporomandibular joint syndrome) Disposition: 01 HOME, SELF-CARE Condition: STABLE Referrals: NO PCP (PCP) Patient Instructions: Temporomandibular Joint Pain-Brief, Temporomandibular Problems Additional Instructions: Thank you for visiting [facility]. We appreciate you trusting us with your care. If any additional problems come up don't hesitate to return to visit us. Please follow up with your primary care provider so they can plan additional care if needed and know about the problem that you had. If symptoms worsen come back to the Emergency Department. Any concerning symptoms that start such as chest pain, shortness of air, weakness or numbness on one side of the body, running high fevers or any other concerning symptoms return to the ER. GINO MIGUEL APRN Sep 22, 2018 10:34
[2018-09-22] MEDS ORDERED: KETOROLAC 60 MG/2 ML VIAL. IM ONE (11:00)
== END 2018-09-22 10:55 | disposition home or self-care (01) ==
LOC: ER 09:52
DX: M26.622 Arthralgia of left temporomandibular joint (principal); H90.12 Conductive hearing loss, unilateral, left ear, with unrestricted hearing on the contralateral side; H92.02 Otalgia, left ear; K21.9 Gastro-esophageal reflux disease without esophagitis; Z90.89 Acquired absence of other organs
CPT/HCPCS: 96372; 99283; J1885

== ENCOUNTER 2018-11-17 09:48 | Emergency (ER) | payer SELFPAY ==
[~2018-11-17] VITALS: Ht 195.6 cm; Wt 88.9 kg
[2018-11-17 09:50] VITALS: BP 108/73
--- NOTE | 2018-11-17 11:05 | PHYS DOC ---
Past Medical History Past Medical History: Constipation, GERD, Other Additional Past Medical Histor: Pinched nerve lower back Past Surgical History: Appendectomy Alcohol Use: None Drug Use: None Adult General Chief Complaint Chief Complaint: COUGH HPI HPI Patient is a 28 year old female who presents with nasal congestion, throat congestion, productive cough �1 week. Patient states she is coughing up yellow mucus. Patient denies fever, shortness of air, nausea, vomiting, abdominal pain, ear pain. Review of Systems Review of Systems Constitutional: Denies fever or chills [] HENT: nasal congestion or sore throat [] Respiratory: cough or denies shortness of breath [] All other systems were reviewed and found to be within normal limits, except as documented in this note. Allergies Allergies Allergies Coded Allergies Type Severity Reaction Last Updated Verified No Known Drug Allergies 02/04/13 No Physical Exam Physical Exam Constitutional: Well developed, well nourished, no acute distress, non-toxic appearance. [] HENT: Normocephalic, atraumatic, bilateral external ears normal, oropharynx moist, no oral exudates, nose normal. [] Eyes: PERRLA, EOMI, conjunctiva normal, no discharge. [] Neck: Normal range of motion, no tenderness, supple, no stridor. [] Lungs & Thorax: Bilateral breath sounds clear to auscultation [] Abdomen: Bowel sounds normal, soft, no tenderness, no masses, no pulsatile masses. [] Extremities: No tenderness, no cyanosis, no clubbing, ROM intact, no edema. [] Neurologic: Alert and oriented X 3, normal motor function, normal sensory function, no focal deficits noted. [] Psychologic: Affect normal, judgement normal, mood normal. Normal Physical Exam [] Current Patient Data Vital Signs Vital Signs Date Time Temp Pulse Resp B/P (MAP) Pulse Ox O2 Delivery O2 Flow Rate FiO2 11/17/18 09:50 98.9 103 17 108/73 (85) 97 Room Air 98.9 EKG EKG [] Radiology/Procedures Radiology/Procedures [] Course & Med Decision Making Course & Med Decision Making Patient is a 28 year old female who presents with nasal congestion, throat c ongestion, productive cough �1 week. Patient states she is coughing up yellow mucus. Patient denies fever, shortness of air, nausea, vomiting, abdominal pain, ear pain. Alert and oriented. Skin pink warm and dry. Lungs clear to auscultation all lobes. Throat is pink without swelling or exudates. Vital signs within normal limits. Speaks in full clear sentences. Ambulatory with steady gait. Patient states she's been taking Mucinex for symptoms. Bilateral tympanic membranes are pearly white. Dragon Disclaimer Dragon Disclaimer This electronic medical record was generated, in whole or in part, using a voice recognition dictation system. Departure Departure Impression: Primary Impression: Cough Additional Impressions: Nasal congestion Chest congestion Disposition: HOME, SELF-CARE Condition: STABLE Referrals: JOLIE FLEMING MD (PCP) Patient Instructions: Cough, Adult Additional Instructions: Continue using Mucinex. Take medications as prescribed. Follow up with your doctor. Scripts Methylprednisolone (MEDROL) 4 Mg Tab.ds.pk 1 PKG PO UD, #1 PKG Prov: RADHA GALDAMEZ APRN 11/17/18 Azithromycin (AZITHROMYCIN TABLET) 250 Mg Tablet 1 PKG PO UD, #6 TAB Prov: RADHA GALDAMEZ APRN 11/17/18 Problem Qualifiers RADHA GALDAMEZ APRN Nov 17, 2018 11:05
[2018-11-17] MEDS ORDERED: METH4TAB2 PO (11:14)
[2018-11-17] MEDS ORDERED: AZIT250T6 PO (11:14)
== END 2018-11-17 11:25 | disposition home or self-care (01) ==
LOC: ER 09:48
DX: R05 Cough (principal); R09.81 Nasal congestion; J02.9 Acute pharyngitis, unspecified; K21.9 Gastro-esophageal reflux disease without esophagitis; Z90.89 Acquired absence of other organs
CPT/HCPCS: 99283

== ENCOUNTER 2019-06-24 14:27 | Emergency (ER) | payer SELFPAY ==
[~2019-06-24] VITALS: Ht 195.6 cm; Wt 87.0 kg
[2019-06-24 14:27] VITALS: BP 118/80
[~2019-06-24 14:27] MED LIST changes: +AZIT250T6 PO; +MAGN296S68 PO; -MAGN296S9 PO
--- NOTE | 2019-06-24 15:33 | PHYS DOC ---
Past Medical History Past Medical History: Constipation, GERD, Other Additional Past Medical Histor: Pinched nerve lower back Past Surgical History: Appendectomy Smoking Status: Never Smoker Alcohol Use: None Drug Use: None General Adult EDM: Chief Complaint: SKIN RASH/ABSCESS HPI: HPI: Patient is a 28 year old female who presents with Dry excoriated skin on bilateral hands. She states it will flare up every year but she has been washing her hands frequently and using alcohol hand gel often. She states she has been using Eucerin lotion daily. She states that it vasquez. Review of Systems: Review of Systems: Integument: Denies rash. Dry Skin[] Heart Score: Risk Factors: Risk Factors: DM, Current or recent (<one month) smoker, HTN, HLP, family history of CAD, obesity. Risk Scores: Score 0 - 3: 2.5% MACE over next 6 weeks - Discharge Home Score 4 - 6: 20.3% MACE over next 6 weeks - Admit for Clinical Observation Score 7 - 10: 72.7% MACE over next 6 weeks - Early Invasive Strategies Allergies: Allergies: Allergies Coded Allergies Type Severity Reaction Last Updated Verified No Known Drug Allergies 02/04/13 No Physical Exam: PE: Constitutional: Well developed, well nourished, no acute distress, non-toxic appearance. [] HENT: Normocephalic, atraumatic, bilateral external ears normal, oropharynx moist, no oral exudates, nose normal. [] Eyes: PERRLA, EOMI, conjunctiva normal, no discharge. [] Neck: Normal range of motion, no tenderness, supple, no stridor. [] Cardiovascular:Heart rate regular rhythm, no murmur [] Lungs & Thorax: Bilateral breath sounds clear to auscultation [] Abdomen: Bowel sounds normal, soft, no tenderness, no masses, no pulsatile masses. [] Skin: Warm, dry, no erythema, no rash. Bilateral hands excoriated skin. [] Back: No tenderness, no CVA tenderness. [] Extremities: No tenderness, no cyanosis, no clubbing, ROM intact, no edema. [] Neurologic: Alert and oriented X 3, normal motor function, normal sensory function, no focal deficits noted. [] Psychologic: Affect normal, judgement normal, mood normal. [] Current Patient Data: Vital Signs: Vital Signs Date Time Temp Pulse Resp B/P (MAP) Pulse Ox O2 Delivery O2 Flow Rate FiO2 06/24/19 14:27 98.2 99 16 118/80 (93) 98 Room Air 98.2 EKG: EKG: [] Radiology/Procedures: Radiology/Procedures: [] Course & Med Decision Making: Course & Med Decision Making Pertinent Labs and Imaging studies reviewed. (See chart for details) Bilateral hands are very dry and excoriated on the anterior hand and fingers. The rest of the skin on the palmar side is very dry but not cracked or excoriated. Denies new soaps, lotions, oils, working outside in [employer]. Patient rates her pain a 5/10. Alert and oriented. Ambulatory with steady gait. She has a primary care physician. Cap refill less than 3 seconds. Radial pulse strong. No weakness in extremities. [] Dragon Disclaimer: Dragon Disclaimer: This electronic medical record was generated, in whole or in part, using a voice recognition dictation system. Departure Departure Impression: Primary Impression: Dermatitis Disposition: 01 HOME, SELF-CARE Condition: STABLE Referrals: JOLIE FLEMING MD (PCP) Patient Instructions: Hand Dermatitis Additional Instructions: FOLLOW UP WITH PRIMARY CARE PHYSICIAN. USE MEDICATION PRESCRIBED. Scripts Hydrocortisone/Pramoxine (HYDROCORT-PRAMOXINE 2.5-1% CRM) 30 Gm Cream.appl 1 MOLLY RC BID for 7 Days, #30 GM 0 Refills Prov: RADHA GALDAMEZ APRN 06/24/19 RADHA GALDAMEZ APRN Jun 24, 2019 15:33
[2019-06-24] MEDS ORDERED: HYDR30CR33 RC (15:52)
== END 2019-06-24 16:02 | disposition home or self-care (01) ==
LOC: ER 14:27
DX: L30.9 Dermatitis, unspecified (principal); K21.9 Gastro-esophageal reflux disease without esophagitis; Z90.89 Acquired absence of other organs
CPT/HCPCS: 99282

== ENCOUNTER 2020-05-11 16:50 | Emergency (ER) | payer SELFPAY ==
[~2020-05-11] VITALS: Ht 195.6 cm; Wt 88.6 kg
[~2020-05-11 16:50] MED LIST changes: +HYDR30CR33 RC
--- NOTE | 2020-05-11 19:00 | EKG ---
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
--- NOTE | 2020-05-11 19:15 | PHYS DOC ---
Past Medical History Past Medical History: Constipation, GERD, Other Additional Past Medical Histor: Pinched nerve lower back Past Surgical History: Appendectomy Smoking Status: Never Smoker Alcohol Use: None Drug Use: None General Adult EDM: Chief Complaint: CHEST WALL PAIN HPI: HPI: 29-year-old female with history of acid reflux presents emergency department for chest pain. Patient reports she was taking a walk today around 2 PM when she developed some left-sided chest wall pain. Is constant. Nonradiating. Has never had pain like this in the past. Is unable to describe it. No shortness of breath nausea vomiting fever chills cough numbness weakness abdominal pain syncope headache neck pain. Patient is not a smoker. Denies drugs or alcohol. Patient reports that her father of a heart attack in his 60s. He also was diagnosed with Marfan syndrome at that time. Patient does have a family physicians and follows with Dr. Fleming. Review of Systems: Review of Systems: Review of Systems: Constitutional: Denies fever or chills Eyes: Denies redness or eye pain HENT: Denies nasal congestion or sore throat Respiratory: Denies cough or shortness of breath Cardiovascular: Positive chest pain or palpitations GI: denies abdominal pain and nausea, denies vomiting or diarrhea : Denies dysuria or hematuria Musculoskeletal: Denies back pain or joint pain Integument: Denies rash or skin lesions Neurologic: Denies headache, focal weakness or sensory changes Heart Score: C/O Chest Pain: Yes HEART Score for Chest Pain: HEART Score for Chest Pain Response (Comments) Value History Slighlty/Non-Suspicious 0 ECG Normal 0 Age < 45 0 Risk Factors 1 or 2 Risk Factors 1 Troponin < Normal Limit 0 Total 1 Risk Factors: Risk Factors: DM, Current or recent (<one month) smoker, HTN, HLP, family history of CAD, obesity. Risk Scores: Score 0 - 3: 2.5% MACE over next 6 weeks - Discharge Home Score 4 - 6: 20.3% MACE over next 6 weeks - Admit for Clinical Observation Score 7 - 10: 72.7% MACE over next 6 weeks - Early Invasive Strategies Allergies: Allergies: Allergies Coded Allergies Type Severity Reaction Last Updated Verified No Known Drug Allergies 02/04/13 No Physical Exam: PE: *GENERAL APPEARANCE: Awake and alert. Cooperative. No acute distress. Non toxic appearing. HEAD: Normocephalic. Atraumatic. EYES: EOM's grossly intact. Sclera anicteric. Conjunctiva clear ENT:. Airway patent. Mucous membranes moist. No trismus. Tolerating secretions. NECK: Supple. Trachea midline. HEART: Regular rate and rhythm. Radial pulses 2+. Good capillary refill. LUNGS: Respirations unlabored. Clear to auscultation bilaterally. No rales, rhonchi, wheezing or retractions. Tenderness palpation over the left anterior chest wall. No rash or lesion. ABDOMEN: Soft. Non-tender. No guarding or rebound. No CVA tenderness. No palpable or pulsatile mass. EXTREMITIES: No acute deformities. No edema, erythema or calf tenderness. SKIN: Warm and dry. No rash. NEUROLOGICAL: Alert and oriented x3. No gross neurological deficits. Moves all 4 extremities spontaneously. PSYCHIATRIC: Normal mood. Current Patient Data: Vital Signs: Vital Signs Date Time Temp Pulse Resp B/P (MAP) Pulse Ox O2 Delivery O2 Flow Rate FiO2 05/11/20 18:23 97.8 110 16 122/77 (92) 97 Room Air 97.8 EKG: EKG: EKG interpretation shows as tachycardia ventricular rate of 102 bpm. NE interval 102 ms. QRS duration of 9072 ms. QTc of [address] segment elevations. Repeat EKG at 7:29 PM shows normal sinus rhythm with ventricular rate of 90 bpm. NE interval 128 ms. QRS 78 ms. QTc 467. No acute ST segment elevations. No changes from previous EKG Radiology/Procedures: Radiology/Procedures: [] CTA of the chest abdomen pelvis: Chest x-ray: ATIENT: VELMA SHOEMAKER ACCOUNT: [id number] : 1990 LOCATION: ER AGE: 29 SEX: F EXAM STATUS: REG ER ORD. PHYSICIAN: ILYA CORREIA DO REASON: CHEST PAIN, R/O AORTIC DISSECTION AND PE PROCEDURE: CT ANGIO CHEST ABD PELVIS Exam: CT of chest, abdomen and pelvis without and with contrast INDICATION: Chest pain, rule out aortic dissection and pulmonary embolism TECHNIQUE: Sequential axial images through the chest, abdomen and pelvis obtained before and after the administration of 100 mL of Omni 350 IV contrast. Sagittal and coronal reformatted images were reconstructed from the axial data and reviewed. 3-D reformatted images were reconstructed from the axial data and reviewed. Comparisons: None FINDINGS: Visual is portions of the thyroid are unremarkable. No enlarged mediastinal lymph nodes are identified. Heart size is normal. No pericardial effusion. Thoracic aorta has a normal course and caliber. Pulmonary artery is not enlarged. Airways are patent. No consolidation or pneumothorax. No suspicious lung nodules are identified. No pleural effusion or thickening. Liver, spleen, pancreas and adrenals are unremarkable. Numerous gallstones are noted within the gallbladder which is nondilated. No perinephric inflammation or hydronephrosis. No renal or ureteral calculi are identified. Bladder is incompletely distended and not well evaluated. Uterus is not enlarged. No abnormal adnexal mass. Large and small bowel are unremarkable. Appendix is nonidentified. No free intra-abdominal air or fluid. No obstruction. Abdominal aorta has a normal course and caliber. Abdominal vasculature is patent. No enlarged intra-abdominal lymph nodes are identified. No suspicious osseous lesions or acute fractures. IMPRESSION: 1. Normal appearance of the aorta without evidence for dissection, aneurysm or intramural hematoma. 2. No pulmonary embolus identified centrally. 3. Cholelithiasis Exposure: One or more of the following in the visualized dose reduction techniques were utilized for this examination: 1. Automated exposure control 2. Adjustment of the MA and/or KV according to patient size 3. Use of iterative of reconstructive technique Electronically signed by: Ezra Garibay MD (05/11/2020 8:50 PM) [facility] DICTATED and SIGNED BY: EZRA GARIBAY MD DATE: 05/11/20 [id number] 0 Course & Med Decision Making: Course & Med Decision Making Medical decision making: This is a 29-year-old female presents emergency department for chest pain that started 2 PM. Patient is slightly tachycardic. 100% on room air. Appears in no acute respiratory distress. Does have some tenderness to palpation of the left anterior chest wall. Patient's EKG shows no acute ST segment elevations. Patient is not . Patient troponin is negative. No leukocytosis. LFTs normal. CT of the chest abdomen pelvis shows no aortic pathology. No central pulmonary embolism. She does have cholelithiasis without evidence of cholecystitis. Patient has had no abdominal pain. No pain after eating. No nausea or vomiting. On reevaluation patient reports pain has completely resolved. Had lengthy discussion with patient about symptoms and findings. I did recommend following up with general surgeon about the gallstones. I recommended her calling her family physician tomorrow to schedule an outpatient follow-up appointment. Patient feels comfortable with this plan. She is to return to the emergency department if her symptoms return or if she has any other concerns. The patient is given strict emergency department return precautions and follow up information. They express a verbal understanding of my instructions. The patient is aware of any labs and imaging. All questions are answered and patient is stable at the time of discharge. Dragon Disclaimer: Dragon Disclaimer: This electronic medical record was generated, in whole or in part, using a voice recognition dictation system. Departure Departure Impression: Primary Impression: Chest pain Additional Impression: Cholelithiasis Disposition: DC HOME SELF CARE/HOMELESS (Discharged at 2109 symptoms resolved.) Condition: IMPROVED (Discharged in stable condition at) Referrals: JOLIE FLEMING MD (PCP) Please call and schedule an appointment with your family physician tomorrow. Please return to the emergency department if your symptoms worsen or return. LENNY SHETTY MD Patient Instructions: Chest Pain (Nonspecific), Chest Pain (Nonspecific), Aask-rd-Phhg, Chest Wall Pain, Cholelithiasis, Cholelithiasis, Aslp-qp-Soig ILYA CORREIA DO May 11, 2020 19:15
[2020-05-11 19:24] LABS: U PREG PATIENT NEGATIVE (NEG)
[2020-05-11 19:25] LABS: BASO % 1 % (0-3); EOS # 0.1 x10^3/uL (0.0-0.7); EOS % 1 % (0-3); LYMPH # 1.9 x10^3/uL (1.0-4.8); LYMPH % 22 % (24-48); MEAN CORPUSCULAR HEMOGLOBIN 31 pg (25-35); MEAN CORPUSCULAR HGB CONC 33 g/dL (31-37); MEAN CORPUSCULAR VOLUME 92 fL (79-100); MONO # 0.6 x10^3/uL (0.0-1.1); MONO % 7 % (0-9); NEUT # 6.3 x10^3/uL (1.8-7.7); NEUT % 71 % (31-73); PLATELET COUNT 260 x10^3/uL (140-400); RED BLOOD COUNT 4.55 x10^6/uL (3.50-5.40); RED CELL DISTRIBUTION WIDTH 12.9 % (11.5-14.5)
[2020-05-11 19:37] LABS: ANION GAP 11 (6-14); BLOOD UREA NITROGEN 7 mg/dL (7-20); BUN/CREATININE RATIO 10 (6-20); CALCIUM 8.7 mg/dL (8.5-10.1); CARBON DIOXIDE 26 mmol/L (21-32); CHLORIDE 105 mmol/L (98-107); CREATININE 0.7 mg/dL (0.6-1.0); GFR 98.3; GLUCOSE 97 mg/dL (70-99); POTASSIUM 3.6 mmol/L (3.5-5.1); SODIUM 142 mmol/L (136-145)
[2020-05-11 19:42] LABS: ALBUMIN 4.2 g/dL (3.4-5.0); ALBUMIN/GLOBULIN RATIO 1.3 (1.0-1.7); ALK PHOS 62 U/L (46-116); AST (SGOT) 11 U/L (15-37); LIPASE 76 U/L (73-393); MAGNESIUM 2.7 mg/dL (1.8-2.4); TOTAL BILIRUBIN 0.4 mg/dL (0.2-1.0); TOTAL PROTEIN 7.4 g/dL (6.4-8.2)
[2020-05-11] MEDS ORDERED: IOHEXOL 350 MG/ML 100 ML VIAL. IV ONE (19:45)
[2020-05-11 19:46] LABS: ALT (SGPT) < 6 U/L (14-59)
[2020-05-11] MEDS ORDERED: CONTRAST GIVEN. MC PRN (20:00)
--- NOTE | 2020-05-11 20:52 | RAD ---
Exam: CT of chest, abdomen and pelvis without and with contrast INDICATION: Chest pain, rule out aortic dissection and pulmonary embolism TECHNIQUE: Sequential axial images through the chest, abdomen and pelvis obtained before and after th e administration of 100 mL of Omni 350 IV contrast. Sagittal and coronal reformatted images were nupur nstructed from the axial data and reviewed. 3-D reformatted images were reconstructed from the axial data and reviewed. Comparisons: None FINDINGS: Visual is portions of the thyroid are unremarkable. No enlarged mediastinal lymph nodes are identifie d. Heart size is normal. No pericardial effusion. Thoracic aorta has a normal course and caliber. Pulmon clemencia artery is not enlarged. Airways are patent. No consolidation or pneumothorax. No suspicious lung nodules are identified. No pleural effusion or thickening. Liver, spleen, pancreas and adrenals are unremarkable. Numerous gallstones are noted within the gallb ladder which is nondilated. No perinephric inflammation or hydronephrosis. No renal or ureteral calculi are identified. Bladder is incompletely distended and not well evaluated. Uterus is not enlarged. No abnormal adnexal mass. Large and small bowel are unremarkable. Appendix is nonidentified. No free intra-abdominal air or flu id. No obstruction. Abdominal aorta has a normal course and caliber. Abdominal vasculature is patent. No enlarged intra-abdominal lymph nodes are identified. No suspicious osseous lesions or acute fractures. IMPRESSION: 1. Normal appearance of the aorta without evidence for dissection, aneurysm or intramural hematoma. 2. No pulmonary embolus identified centrally. 3. Cholelithiasis Exposure: One or more of the following in the visualized dose reduction techniques were utilized for this examination: 1. Automated exposure control 2. Adjustment of the MA and/or KV according to patient size 3. Use of iterative of reconstructive technique Electronically signed by: Ezra Fraga MD (05/11/2020 8:50 PM) [facility]
--- NOTE | 2020-05-11 21:05 | EKG ---
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
[2020-05-11 21:18] VITALS: BP 104/73
--- NOTE | 2020-05-11 22:22 | RAD ---
INDICATION: Reason: CHEST PAIN / Spl. Instructions: / History: COMPARISON: January 2018 FINDINGS: 2 view of chest obtained. Hyperexpanded lungs without focal consolidation. Cardiac silhouette is unremarkable. Mild degenerativ e spurring of the spine. IMPRESSION: * Hyperexpanded lungs without focal airspace consolidation. Electronically signed by: Samuel Goodwin MD (05/11/2020 10:19 PM) [id number]
== END 2020-05-11 21:34 | disposition home or self-care (01) ==
LOC: ER 16:50
DX: R07.89 Other chest pain (principal); K80.20 Calculus of gallbladder without cholecystitis without obstruction; K21.9 Gastro-esophageal reflux disease without esophagitis; Z90.89 Acquired absence of other organs
CPT/HCPCS: 36415; 71046; 71275; 74174; 80053; 81025; 83690; 83735; 84484; 85025; 93005; 99285; Q9967

== ENCOUNTER 2020-05-18 10:10 | Emergency (ER) | payer SELFPAY ==
[~2020-05-18] VITALS: Ht 195.6 cm; Wt 87.6 kg
[2020-05-18] MEDS ORDERED: ONDANSETRON PF 4 MG/2 ML VIAL. IVP ONE (10:45)
--- NOTE | 2020-05-18 10:59 | PHYS DOC ---
Past Medical History Past Medical History: Constipation, Gallstones, GERD, Other Additional Past Medical Histor: Pinched nerve lower back Past Surgical History: Appendectomy Smoking Status: Never Smoker Alcohol Use: None Drug Use: None General Adult EDM: Chief Complaint: ABDOMINAL PAIN HPI: HPI: Patient is a 29 year old female who presented to ER due to right upper quad abdominal pain started this morning associated with some nausea. Patient denies any trouble breathing, no cough, no fever, no trouble with urination. Review of Systems: Review of Systems: Constitutional: Denies fever or chills. [] Eyes: Denies change in visual acuity. [] HENT: Denies nasal congestion or sore throat. [] Respiratory: Denies cough or shortness of breath. [] Cardiovascular: Denies chest pain or edema. [] GI: Positive for right upper quadrant abdominal pain with nausea, no vomiting, no diarrhea : Denies dysuria. [] Musculoskeletal: Denies back pain or joint pain. [] Integument: Denies rash. [] Neurologic: Denies headache, focal weakness or sensory changes. [] Endocrine: Denies polyuria or polydipsia. [] Lymphatic: Denies swollen glands. [] Psychiatric: Denies depression or anxiety. [] Heart Score: C/O Chest Pain: N/A Risk Factors: Risk Factors: DM, Current or recent (<one month) smoker, HTN, HLP, family hist ory of CAD, obesity. Risk Scores: Score 0 - 3: 2.5% MACE over next 6 weeks - Discharge Home Score 4 - 6: 20.3% MACE over next 6 weeks - Admit for Clinical Observation Score 7 - 10: 72.7% MACE over next 6 weeks - Early Invasive Strategies Current Medications: Current Medications Medications (Trade) Dose Ordered Sig/Gloria Start Time Stop Time Status Last Admin Dose Admin Ondansetron HCl (Zofran) 4 mg 1X ONCE 05/18/20 10:45 05/18/20 10:46 DC Allergies: Allergies: Allergies Coded Allergies Type Severity Reaction Last Updated Verified No Known Drug Allergies 02/04/13 No Physical Exam: PE: Constitutional: Well developed, well nourished, no acute distress, non-toxic appearance. [] HENT: Normocephalic, atraumatic, bilateral external ears normal, oropharynx moist, no oral exudates, nose normal. [] Eyes: PERRLA, EOMI, conjunctiva normal, no discharge. [] Neck: Normal range of motion, no tenderness, supple, no stridor. [] Cardiovascular:Heart rate regular rhythm, no murmur [] Lungs & Thorax: Bilateral breath sounds clear to auscultation [] Abdomen: Bowel sounds normal, soft, there is mild tenderness in the right upper quadrant, no masses, no pulsatile masses. [] Skin: Warm, dry, no erythema, no rash. [] Back: No tenderness, no CVA tenderness. [] Extremities: No tenderness, no cyanosis, no clubbing, ROM intact, no edema. [] Neurologic: Alert and oriented X 3, normal motor function, normal sensory function, no focal deficits noted. [] Psychologic: Affect normal, judgement normal, mood normal. [] Current Patient Data: Labs: Laboratory Tests Test 05/18/20 10:15 05/18/20 10:55 05/18/20 11:02 Urine Collection Type Unknown Urine Color Yellow Urine Clarity Clear Urine pH 7.5 Urine Specific [place] 1.015 Urine Protein Negative mg/dL Urine Glucose (UA) Negative mg/dL Urine Ketones (Stick) Trace mg/dL Urine Blood Small Urine Nitrite Negative Urine Bilirubin Negative Urine Urobilinogen Dipstick 0.2 mg/dL Urine Leukocyte Esterase Negative Urine RBC 1-2 /HPF Urine WBC 1-4 /HPF Urine Squamous Epithelial Cells Mod /LPF Urine Amorphous Sediment Present /HPF Urine Bacteria Few /HPF White Blood Count 6.4 x10^3/uL Red Blood Count 4.77 x10^6/uL Hemoglobin 14.8 g/dL Hematocrit 43.4 % Mean Corpuscular Volume 91 fL Mean Corpuscular Hemoglobin 31 pg Mean Corpuscular Hemoglobin Concent 34 g/dL Red Cell Distribution Width 12.6 % Platelet Count 260 x10^3/uL Neutrophils (%) (Auto) 65 % Lymphocytes (%) (Auto) 25 % Monocytes (%) (Auto) 8 % Eosinophils (%) (Auto) 2 % Basophils (%) (Auto) 1 % Neutrophils # (Auto) 4.1 x10^3/uL Lymphocytes # (Auto) 1.6 x10^3/uL Monocytes # (Auto) 0.5 x10^3/uL Eosinophils # (Auto) 0.1 x10^3/uL Basophils # (Auto) 0.0 x10^3/uL Sodium Level 144 mmol/L Potassium Level 4.3 mmol/L Chloride Level 106 mmol/L Carbon Dioxide Level 27 mmol/L Anion Gap 11 Blood Urea Nitrogen 9 mg/dL Creatinine 0.7 mg/dL Estimated GFR (Cockcroft-Gault) 98.3 BUN/Creatinine Ratio 13 Glucose Level 92 mg/dL Calcium Level 8.8 mg/dL Total Bilirubin 0.5 mg/dL Aspartate Amino Transf (AST/SGOT) 14 U/L Alanine Aminotransferase (ALT/SGPT) 18 U/L Alkaline Phosphatase 59 U/L Total Protein 7.4 g/dL Albumin 4.1 g/dL Albumin/Globulin Ratio 1.2 Lipase 92 U/L Bedside Urine HCG, Qualitative Hcg negative Current Medications Medications (Trade) Dose Ordered Sig/Gloria Route PRN Reason Start Time Stop Time Status Last Admin Dose Admin Ondansetron HCl (Zofran) 4 mg 1X ONCE IVP 05/18/20 10:45 05/18/20 10:46 DC 05/18/20 11:15 Vital Signs: Vital Signs Date Time Temp Pulse Resp B/P (MAP) Pulse Ox O2 Delivery O2 Flow Rate FiO2 05/18/20 10:15 98.5 99 17 113/72 (86) 98 Room Air 98.5 EKG: EKG: [] Radiology/Procedures: Radiology/Procedures: [][facility] [address] [place] [address] IMAGING REPORT Signed PATIENT: VELMA SHOEMAKER ACCOUNT: [id number] : 1990 LOCATION: ER AGE: 29 SEX: F EXAM STATUS: REG ER ORD. PHYSICIAN: SARINA FARFAN DO REASON: RUQ ABDOMINA PAIN PROCEDURE: ABDOMEN LTD US ABDOMEN LTD History: Right upper quadrant pain. Comparison: CT angiogram chest abdomen pelvis 05/11/2020. Technique: Sonographic examination of the right upper quadrant of the abdomen. Findings: Liver: The liver measures 15.7 cm. Liver echotexture is normal. No focal hepatic lesions. Hepatopetal flow in the portal vein. Gallbladder: Mild gallbladder wall thickening, 4 mm. Innumerable shadowing gallstones within the gallbladder. No significant pericholecystic fluid. A sonographic Canales sign was not present. Bile ducts: The common duct measures 3 mm. Pancreas: Partially visualized pancreas is unremarkable. The remainder of the pancreas is limited by bowel gas artifact. Right kidney: 13.0 cm in length. No focal lesion, calculi or hydronephrosis. Aorta/IVC: Visualized portions are unremarkable. Other: No ascites. Impression: 1. Cholelithiasis with minimal gallbladder wall thickening, 4 mm. No pericholecystic fluid or sonographic Canales sign to suggest acute cholecystitis. Correlate with clinical exam. Electronically signed by: Mayo Lazcano MD (05/18/2020 11:51 AM) [facility] DICTATED and SIGNED BY: MAYO LAZCANO MD DATE: 05/18/20 [id number] 0 Course & Med Decision Making: Course & Med Decision Making Pertinent Labs and Imaging studies reviewed. (See chart for details) Patient is a 29-year-old female who presented to ER due to right upper quadrant abdominal pain, ultrasound showed multiple gallstones, there is no fever, no white blood cell elevation, no current pain at this time, normal liver function test. There is no clinical evidence of cholecystitis patient will be discharged home, she will need to follow-up with the general surgeon for outpatient evalua tion and treatment Dragon Disclaimer: Dragon Disclaimer: This electronic medical record was generated, in whole or in part, using a voice recognition dictation system. Departure Departure Impression: Primary Impression: Biliary colic Disposition: 01 DC HOME SELF CARE/HOMELESS Condition: STABLE Referrals: JOLIE FLEIMNG MD (PCP) LENNY SHETTY MD Please call this surgeon for outpatient evaluation and treatment. Patient Instructions: Biliary Colic Additional Instructions: Thank you for visiting our Emergency Department. We appreciate you trusting us with your care. If any additional problems come up don't hesitate to return to visit us. Please follow up with your primary care provider so they can plan additional care if needed and know about the problem that you had. If symptoms worsen come back to the Emergency Department. Any concerning symptoms that start such as chest pain, shortness of air, weakness or numbness on one side of the body, running high fevers or any other concerning symptoms return to the ER. SARINA FARFAN DO May 18, 2020 10:59
[2020-05-18 11:24] LABS: BASO % 1 % (0-3); EOS # 0.1 x10^3/uL (0.0-0.7); EOS % 2 % (0-3); HEMATOCRIT 43.4 % (36.0-47.0); HEMOGLOBIN 14.8 g/dL (12.0-15.5); LYMPH # 1.6 x10^3/uL (1.0-4.8); LYMPH % 25 % (24-48); MEAN CORPUSCULAR HEMOGLOBIN 31 pg (25-35); MEAN CORPUSCULAR HGB CONC 34 g/dL (31-37); MEAN CORPUSCULAR VOLUME 91 fL (79-100); MONO # 0.5 x10^3/uL (0.0-1.1); MONO % 8 % (0-9); NEUT # 4.1 x10^3/uL (1.8-7.7); NEUT % 65 % (31-73); PLATELET COUNT 260 x10^3/uL (140-400); RED BLOOD COUNT 4.77 x10^6/uL (3.50-5.40); RED CELL DISTRIBUTION WIDTH 12.6 % (11.5-14.5); WHITE BLOOD COUNT 6.4 x10^3/uL (4.0-11.0)
[2020-05-18 11:27] LABS: CALCIUM 8.8 mg/dL (8.5-10.1); CREATININE 0.7 mg/dL (0.6-1.0); GFR 98.3; POTASSIUM 4.3 mmol/L (3.5-5.1)
[2020-05-18 11:29] LABS: BILIRUBIN,URINE NEGATIVE (NEG); CLARITY,URINE CLEAR; COLOR,URINE YELLOW; NITRITE,URINE NEGATIVE (NEG); PH,URINE 7.5 (<5.0-8.0); PROTEIN,URINE NEGATIVE (NEG-TRACE); UROBILINOGEN,URINE 0.2 mg/dL (0.2 mg/dL)
[2020-05-18 11:33] LABS: ALBUMIN 4.1 g/dL (3.4-5.0); ALBUMIN/GLOBULIN RATIO 1.2 (1.0-1.7); TOTAL BILIRUBIN 0.5 mg/dL (0.2-1.0); TOTAL PROTEIN 7.4 g/dL (6.4-8.2)
[2020-05-18 11:43] LABS: AMORPHOUS SEDIMENT,UR PRESENT /HPF; BACTERIA,URINE FEW /HPF (0-FEW)
--- NOTE | 2020-05-18 11:53 | RAD ---
US ABDOMEN LTD History: Right upper quadrant pain. Comparison: CT angiogram chest abdomen pelvis 05/11/2020. Technique: Sonographic examination of the right upper quadrant of the abdomen. Findings: Liver: The liver measures 15.7 cm. Liver echotexture is normal. No focal hepatic lesions. Hepatopet al flow in the portal vein. Gallbladder: Mild gallbladder wall thickening, 4 mm. Innumerable shadowing gallstones within the gall bladder. No significant pericholecystic fluid. A sonographic Canales sign was not present. Bile ducts: The common duct measures 3 mm. Pancreas: Partially visualized pancreas is unremarkable. The remainder of the pancreas is limited by bowel gas artifact. Right kidney: 13.0 cm in length. No focal lesion, calculi or hydronephrosis. Aorta/IVC: Visualized portions are unremarkable. Other: No ascites. Impression: 1. Cholelithiasis with minimal gallbladder wall thickening, 4 mm. No pericholecystic fluid or sonogr aphic Canales sign to suggest acute cholecystitis. Correlate with clinical exam. Electronically signed by: Mayo Wheat MD (05/18/2020 11:51 AM) [facility]
[2020-05-18 12:25] VITALS: BP 94/64
== END 2020-05-18 12:35 | disposition home or self-care (01) ==
LOC: ER 10:10
DX: K80.50 Calculus of bile duct without cholangitis or cholecystitis without obstruction (principal); R10.11 Right upper quadrant pain; R11.0 Nausea; K21.9 Gastro-esophageal reflux disease without esophagitis; Z90.89 Acquired absence of other organs; Z87.442 Personal history of urinary calculi
CPT/HCPCS: 36415; 76705; 80053; 81001; 81025; 83690; 85025; 96374; 99285; J2405

== ENCOUNTER 2020-12-09 11:22 | Emergency (ER) | payer SELFPAY ==
[~2020-12-09] VITALS: Ht 195.6 cm; Wt 85.4 kg
[2020-12-09 11:29] VITALS: BP 116/64
--- NOTE | 2020-12-09 12:24 | RAD ---
EXAM: CHEST ONE VIEW. HISTORY: Cough. COMPARISON: 05/11/2020. FINDINGS: A frontal view of the chest is obtained. There are no confluent infiltrates. The lungs are expanded to the 12th posterior ribs. There is no pn eumothorax or pleural effusion. The heart is not enlarged. IMPRESSION: 1. Hyperinflation. Correlate to exclude air trapping. No confluent infiltrates. Electronically signed by: Karthik Delarosa MD (12/09/2020 12:21 PM) [id number]
[2020-12-09] MEDS ORDERED: ALBU2.5V8 IH (12:36)
--- NOTE | 2020-12-09 12:37 | PHYS DOC ---
Past Medical History Past Medical History: Constipation, Gallstones, GERD, Other Additional Past Medical Histor: Pinched nerve lower back (KEVIN DUVAL [employer]BER) Past Surgical History: Appendectomy (KEVIN DUVAL [employer]BER) Smoking Status: Never Smoker Alcohol Use: None Drug Use: None (KEVIN DUVAL [employer]) Attending Signature I have participated in the care of this patient and I have reviewed and agree with all pertinent clinical information above including history, exam, and recommendations. (ATUL HAYS DO) General Adult EDM: Chief Complaint: COUGH HPI: HPI: Patient is a 30 year old female presenting today complaining of a dry cough for 3 weeks. Patient denies any fever or shortness of breath, reports receiving COVID-19 vaccine. (KEVIN DUVAL [employer] TE[employer] MEMBER) Review of Systems: Review of Systems: Constitutional: Denies fever or chills. [] Eyes: Denies change in visual acuity. [] HENT: Denies nasal congestion or sore throat. [] Respiratory: Reports cough for 3 weeks, denies shortness of breath. [] Cardiovascular: Denies chest pain or edema. [] GI: Denies abdominal pain, nausea, vomiting, bloody stools or diarrhea. [] : Denies dysuria. [] Musculoskeletal: Denies back pain or joint pain. [] Integument: Denies rash. [] Neurologic: Denies headache, focal weakness or sensory changes. [] Psychiatric: Denies depression or anxiety. [] (KEVIN DUVAL [employer] TE[employer] MEMBER) Heart Score: C/O Chest Pain: N/A Risk Factors: Risk Factors: DM, Current or recent (<one month) smoker, HTN, HLP, family history of CAD, obesity. Risk Scores: Score 0 - 3: 2.5% MACE over next 6 weeks - Discharge Home Score 4 - 6: 20.3% MACE over next 6 weeks - Admit for Clinical Observation Score 7 - 10: 72.7% MACE over next 6 weeks - Early Invasive Strategies (KEVIN DUVAL [employer]BER) Allergies: Allergies: Allergies Coded Allergies Type Severity Reaction Last Updated Verified No Known Drug Allergies 02/04/13 No (KEVIN DUVAL [employer]BER) Physical Exam: PE: Constitutional: Well developed, well nourished, no acute distress, non-toxic appearance. [] HENT: Normocephalic, atraumatic, bilateral external ears normal, oropharynx moist, no oral exudates, nose normal. [] Eyes: PERRLA, EOMI, conjunctiva normal, no discharge. [] Neck: Normal range of motion, no tenderness, supple, no stridor. [] Cardiovascular:Heart rate regular rhythm, no murmur [] Lungs & Thorax: Bilateral breath sounds clear to auscultation [] Abdomen: Bowel sounds normal, soft, no tenderness, no masses, no pulsatile masses. [] Skin: Warm, dry, no erythema, no rash. [] Back: No tenderness, no CVA tenderness. [] Extremities: No tenderness, no cyanosis, no clubbing, ROM intact, no edema. [] Neurologic: Alert and oriented X 3, normal motor function, normal sensory function, no focal deficits noted. [] Psychologic: Affect normal, judgement normal, mood normal. [] (KEVIN DUVAL [employer] MEMBER) Current Patient Data: Vital Signs: Vital Signs Date Time Temp Pulse Resp B/P (MAP) Pulse Ox O2 Delivery O2 Flow Rate FiO2 12/09/20 11:29 98.2 102 16 116/64 (81) 98 Room Air 98.2 (KEVIN DUVAL [employer]) EKG: EKG: [] (KEVIN DUVAL [employer] MEMBER) Radiology/Procedures: Radiology/Procedures: []PROCEDURE: CHEST AP ONLY EXAM: CHEST ONE VIEW. HISTORY: Cough. COMPARISON: 05/11/2020. FINDINGS: A frontal view of the chest is obtained. There are no confluent infiltrates. The lungs are expanded to the 12th posterior ribs. There is no pneumothorax or pleural effusion. The heart is not enlarged. IMPRESSION: 1. Hyperinflation. Correlate to exclude air trapping. No confluent infiltrates. Electronically signed by: Karthik Delarosa MD (12/09/2020 12:21 PM) [id number] DICTATED and SIGNED BY: ELYSSA DELAROSA MD DATE: 12/09/20 [id number] (KEVIN [employer]) Course & Med Decision Making: Course & Med Decision Making Pertinent Labs and Imaging studies reviewed. (See chart for details) This is a 30-year-old female Patient presenting to the ED today with a cough for 3 weeks. Chest x-ray interpreted by radiologist is negative. Patient refused Covid test. Discharged home. Follow-up with PCP in 1 to 2 weeks. (KEVIN DUVAL APRN) Michelle Disclaimer: Michelle Disclaimer: This electronic medical record was generated, in whole or in part, using a voice recognition dictation system. (KEVIN DUVAL APRN) Departure Departure Impression: Primary Impression: Cough Disposition: HOME / SELF CARE / HOMELESS Condition: STABLE Referrals: JOLIE FLEMING MD (PCP) Follow-up in 1 week Patient Instructions: Cough, Adult, [id number] Additional Instructions: Your chest x-ray was negative for any acute findings. Please use the prescribed medications as ordered. Follow-up with your doctor next week Scripts Albuterol Sulfate (Proair Hfa) 8.5 Gm Hfa.aer.ad 2 PUFF IH PRN Q4-6HRS PRN for wheezing for 21 Days, #1 INHALER 0 Refills Prov: KEVIN DUVAL APRN 12/09/20 Attending Signature I have participated in the care of this patient and I have reviewed and agree with all pertinent clinical information above including history, exam, and recommendations. (ATUL HAYS DO) KEVIN DUVAL APRN Dec 09, 2020 12:37 ATUL HAYS DO Dec 09, 2020 14:16
== END 2020-12-09 12:44 | disposition home or self-care (01) ==
LOC: ER 11:22
DX: R05.9 Cough, unspecified (principal); K21.9 Gastro-esophageal reflux disease without esophagitis
CPT/HCPCS: 71045; 99283

== ENCOUNTER 2021-05-12 14:36 | Emergency (ER) | payer SELFPAY ==
[~2021-05-12] VITALS: Ht 188 cm; Wt 86.4 kg
[~2021-05-12 14:36] MED LIST changes: +ALBU2.5V8 IH
[2021-05-12 14:40] VITALS: BP 112/82
[2021-05-12] MEDS ORDERED: BACI28.43 TP (14:50)
--- NOTE | 2021-05-12 14:50 | PHYS DOC ---
Past Medical History Past Medical History: Constipation, Gallstones, GERD, Other Additional Past Medical Histor: Pinched nerve lower back Past Surgical History: Appendectomy Smoking Status: Never Smoker Alcohol Use: None Drug Use: None General Adult EDM: Chief Complaint: BURN/SMOKE INHALATION HPI: HPI: Patient is a 30 year old female who presents to the ED today with left index finger burn. Patient states she got burned by hot glue while doing an art project. Patient is right-handed. Review of Systems: Review of Systems: Constitutional: Denies fever or chills. [] Musculoskeletal: Denies back pain or joint pain. [] Integument: Reports burn to the left index finger Neurologic: Denies headache, focal weakness or sensory changes. [] [] Psychiatric: Denies depression or anxiety. [] Heart Score: C/O Chest Pain: N/A Risk Factors: Risk Factors: DM, Current or recent (<one month) smoker, HTN, HLP, family history of CAD, obesity. Risk Scores: Score 0 - 3: 2.5% MACE over next 6 weeks - Discharge Home Score 4 - 6: 20.3% MACE over next 6 weeks - Admit for Clinical Observation Score 7 - 10: 72.7% MACE over next 6 weeks - Early Invasive Strategies Allergies: Allergies: Allergies Coded Allergies Type Severity Reaction Last Updated Verified No Known Drug Allergies 02/04/13 No Physical Exam: PE: Constitutional: Well developed, well nourished, no acute distress, non-toxic appearance. [] Skin: Distal end of the left index finger with a second-degree burn roughly 0.3 x 0.2 cm. Range of motion is intact to the finger. Adequate radial sensation to the finger. +2 left radial pulse. Cap refill less than 2 seconds to the left index finger. Back: No tenderness, no CVA tenderness. [] Extremities: No tenderness, no cyanosis, no clubbing, ROM intact, no edema. [] Neurologic: Alert and oriented X 3, normal motor function, normal sensory function, no focal deficits noted. [] Psychologic: Affect normal, judgement normal, mood normal. [] EKG: EKG: [] Radiology/Procedures: Radiology/Procedures: [] Course & Med Decision Making: Course & Med Decision Making Pertinent Labs and Imaging studies reviewed. (See chart for details) This a 30-year-old female patient presenting to the ED today with burn to the left index finger from hot glue. The burn is very tiny. Discharge with bacitracin. Tetanus is up-to-date. Follow-up with PCP in 1 week or the wound clinic Michelle Disclaimer: Michelle Disclaimer: This electronic medical record was generated, in whole or in part, using a voice recognition dictation system. Departure Departure Impression: Primary Impression: Burn of finger of left hand Disposition: HOME / SELF CARE / HOMELESS Condition: STABLE Referrals: JOLIE FLEMING MD (PCP) Follow-up in 1 to 2 weeks DARON JOYNER MD You can also follow-up with [facility] wound clinic Patient Instructions: Burn Care, [id number] Additional Instructions: You have a second-degree burn to the left index finger. Use bacitracin to the area twice a day for 7 days. Keep the area clean. Follow-up with your own doctor in 1 to 2 weeks or [facility] wound clinic. Come back to the ED at any point symptoms worsen Scripts Bacitracin (Bacitracin) 28.4 Gm Oint...g. 1 MOLLY TP BID for 7 Days, #28.4 [facility] [place] Prov: KEVIN DUVAL APRN 05/12/21 KEVIN DUVAL APRN May 12, 2021 14:50
[2021-05-12] MEDS ORDERED: BACITRACIN TOPICAL OINT PACKET. TP ONE (15:15)
== END 2021-05-12 14:55 | disposition home or self-care (01) ==
LOC: ER 14:36
DX: T23.222A Burn of second degree of single left finger (nail) except thumb, initial encounter (principal); K21.9 Gastro-esophageal reflux disease without esophagitis; X08.8XXA Exposure to other specified smoke, fire and flames, initial encounter; Y93.89 Activity, other specified; Y92.89 Other specified places as the place of occurrence of the external cause; Y99.8 Other external cause status
CPT/HCPCS: 99282